=== PATIENT | female | born 1995 | race Caucasian/White ===

== ENCOUNTER → 2018-01-23 11:13 | Outpatient (REF) | payer MEDICAID, SELFPAY ==
[2018-01-23 15:11] LABS: Tricyclic Antidepressants Negative (Negative)
[2018-01-23 15:18] LABS: *AMPHETAMINES SCREEN URINE Negative (Negative); *BARBITURATES SCREEN URINE Negative (Negative); *BENZODIAZEPINES SCREEN URINE Negative (Negative); Cannabinoids THC Negative (Negative); Cocaine Screen,Urine Negative (Negative); METHADONE URINE SCREEN Negative (Negative); OPIATES URINE SCREEN Negative (Negative)
[2018-01-24 14:59] LABS: Chlamydia Result Negative; GC Result Negative; Specimen Description CERVIX
[2018-01-26 08:52] LABS: Buprenorphine Negative; Norbuprenorphine Negative
== END ==
LOC: LBN 11:13
PROVIDERS: Visit Provider Advanced Practice Midwife
DX: Z34.91 Encounter for supervision of normal pregnancy, unspecified, first trimester (principal); Z11.3 Encounter for screening for infections with a predominantly sexual mode of transmission
CPT/HCPCS: 80307; 87077; 87491; 87591; 87086; 87480; 87510; 87660

== ENCOUNTER → 2018-01-23 11:24 | Outpatient (CLI) | payer MEDICAID, SELFPAY ==
[2018-01-23 13:09] LABS: Abs Immature Grans 0.02 k/cumm (0.0-0.09); Absolute Basophil Count 0.01 k/cumm (0.0-0.2); Absolute Eosinophil Count 0.17 k/cumm (0.0-0.7); Absolute Lymphocyte Count 2.15 k/cumm (1.2-3.4); Absolute Monocyte Count 0.72 k/cumm (0.11-0.7); Absolute Neutrophil Count 7.27 k/cumm (1.2-6.7); Basophils % 0.1; Eosinophils % 1.6; HCT 36.4 % (36.0-46.0); HGB 12.3 g/dL (12.0-15.5); Immature Grans % 0.2; Lymphocytes % 20.8; Mean Corp. HGB Concentration 33.8 g/dL (32.0-36.0); Mean Corpuscular Hemoglobin 29.6 pg (27.0-33.0); Mean Corpuscular Volume 87.7 fL (80-95); Neutrophils % 70.3; Platelet Count 272 x1000/uL (130-400); RBC 4.15 m/cumm (4.00-5.20); White Blood Cell Count 10.34 k/cumm (4.4-10.8)
[2018-01-23 13:13] LABS: Glucose,1 Hr (Glucola) 136 mg/dL (80-140)
[2018-01-23 13:58] LABS: TSH (W/Ref FT4) 0.75 uIU/mL (0.358-3.74)
[2018-01-24 11:50] LABS: HIV-1/2 Ag & Ab Screen Negative (NEGAT)
[2018-01-24 12:59] LABS: Hepatitis C Ab w Rflx HCV PCR Negative (NEGAT)
[2018-01-24 13:02] LABS: Rubella IgG Ab (UVM) Positive; Syphilis Serology (RPR) Negative (Negative)
[2018-01-24 15:13] LABS: Hepatitis B Surface Ag Negative (NEGAT)
== END ==
PROVIDERS: Visit Provider Advanced Practice Midwife
DX: Z34.91 Encounter for supervision of normal pregnancy, unspecified, first trimester (principal); Z11.3 Encounter for screening for infections with a predominantly sexual mode of transmission
CPT/HCPCS: 36415; 80055; 80307; 82950; 86850; 86900; 86901; 87077; 87491; 87591; 84443; 87086; 87480; 87510; 87660

== ENCOUNTER → 2018-01-26 08:25 | Outpatient (CLI) | payer MEDICAID, SELFPAY ==
[2018-01-26 10:51] LABS: Glucose 1 Hour 121 mg/dL
[2018-01-26 13:00] LABS: Glucose 3 Hour 82 mg/dL
== END ==
PROVIDERS: Visit Provider Advanced Practice Midwife
DX: R73.02 Impaired glucose tolerance (oral) (principal)
CPT/HCPCS: 36410; 82951

== ENCOUNTER → 2018-02-06 17:36 | Outpatient (REF) | payer MEDICAID, SELFPAY ==
[2018-02-06 18:57] LABS: Bilirubin Negative (Negative); Blood Negative (Negative); Clarity Clear; Glucose Negative (Negative); Ketones Trace mg/dL (Negative); Leukocyte Esterase Negative (Negative); Nitrite Negative (Negative); Urobilinogen 0.2 EU/dL (Up TO 0.2); pH 6.5 (5-8)
== END ==
LOC: LBN 17:36
PROVIDERS: Visit Provider Midwife
DX: R30.9 Painful micturition, unspecified (principal)
CPT/HCPCS: 81003

== ENCOUNTER 2018-02-27 12:47 | Observation (INO) | payer MEDICAID, SELFPAY ==
[2018-02-27] MEDS: Lactated Ringers 1,000 ML 150 ML IV (14:04)
[2018-02-27 14:08] LABS: Chloride 104 mmol/L (98-107); Potassium 3.7 mmol/L (3.5-5.1); Sodium 137 mmol/L (136-145)
[2018-02-27] MEDS: Metoclopramide 10 MG/2 ML VIAL IVP (14:32)
[2018-02-27] MEDS: Ondansetron 4 MG/2 ML VIAL IVP (15:07)
== END 2018-02-27 17:40 | disposition home or self-care (01) ==
PROVIDERS: Admitting Provider Advanced Practice Midwife; Visit Provider Advanced Practice Midwife
DX: O21.8 Other vomiting complicating pregnancy (principal); Z3A.17 17 weeks gestation of pregnancy
CPT/HCPCS: 36415; 80051; G0378; J2405; J2765

== ENCOUNTER 2018-03-05 00:22 | Outpatient (CLI) | payer MEDICAID, SELFPAY ==
--- NOTE | 2018-03-05 09:52 | DI.US_ITS ---
Many abnormalities cannot be diagnosed. A normal exam does not exclude a congenital anomaly. Radiology No. LMP: Exam Date: 03/05/18 [facility] wks days on EDC ([facility]) 08/02/18 Confirmed: HISTORY: SUPERVISION OF NORMAL , Z34.90, SURVEY ---- PREDICTED GESTATIONAL AGE NUMBER 18.4 weeks with a range of 17.4 week to 19.4 weeks. 1 Determined by__X_1STUS___LMP___HISTORY Info. pertaining to fetus # PLACENTA PRESENTATION Grade 0-1 Cephalic__X_ Anterior__X_Posterior___ Breech____ Right Left Transverse(head right___ Fundal___Low-lying___Previa___ Transverse(head left___ Varying BIOMETRY AMNIOTIC FLUID BPD: 42 mm 18.6 weeks Normal HC: 157 mm 18.4 weeks AC: 29 mm 18.6 weeks FL: 132 mm 18.5 weeks AMNIOTIC FLUID INDEX >26 WK CRL: mm weeks Cisterna Magna: 2.2 mm CI: 86 RUQ: LUQ Cerebellum: 1.9 cm EFW: 255 grams 56TH Percentile RLQ: LLQ Total: cms Composite AGE= 18.5 wks EDC by US 08/01/18____ BIOPHYSICAL PROFILE ANATOMY IDENTIFIED SCORE 0/2 Heart: 4-Chamber_X__Rate:BPM__155___ LVOT: X__ RVOT:___X Amniotic Fluid(>2cms)____ Stomach:__X Kidneys:___X____ Respirations (>30 secs) Bladder:____X____ Post. Fossa: X Body Flex/Extension 3 vessel cord:___X____Ventricles: X cord insertion:__X___ Lips:__X__ Extremity Flex/Extension spinal morphology:___X Nose:X Total Score= Palate:___X____ NS=not seen Routine examination. There is a single intrauterine gestation. Estimated sonographic age is 18 weeks 5 days. No or placental abnormalities are identified. The fetus is in the cephalic presentation. Estimated weight is 255 grams. Amniotic fluid is within normal limits visually. The placenta is anterior without evidence of previa. IMPRESSION: Single living intrauterine gestation. Estimated sonographic age is 18 weeks 5 days.
== END 2018-03-05 00:42 ==
PROVIDERS: Visit Provider Advanced Practice Midwife
DX: Z34.82 Encounter for supervision of other normal pregnancy, second trimester (principal)
CPT/HCPCS: 76805

== ENCOUNTER 2018-03-05 12:16 | Outpatient (REF) | payer MEDICAID, SELFPAY ==
[2018-03-05 12:36] LABS: Bilirubin Negative (Negative); Blood Negative (Negative); Clarity Clear; Glucose Negative (Negative); Ketones Negative (Negative); Leukocyte Esterase Trace (Negative); Nitrite Negative (Negative); Urobilinogen 0.2 EU/dL (Up TO 0.2)
[2018-03-05 12:45] LABS: Bacteria Moderate HPF (Negative); C & S Indicated? No/Sq. Contamination; Casts Negative LPF (Negative); Crystals Negative HPF (Negative); Epithelial Cells Many HPF (Negative); Mucus Negative (Negative); RBC 0-2 (0-2)
== END 2018-03-05 12:36 ==
LOC: LBN 12:16
PROVIDERS: Visit Provider Advanced Practice Midwife
DX: Z34.91 Encounter for supervision of normal pregnancy, unspecified, first trimester (principal)
CPT/HCPCS: 81003; 81015

== ENCOUNTER 2018-03-21 17:41 | Outpatient (REF) | payer MEDICAID, SELFPAY | END 2018-03-21 18:01 | LOC: LBN 17:41 | PROVIDERS: Visit Provider Advanced Practice Midwife | DX: Z34.92 Encounter for supervision of normal pregnancy, unspecified, second trimester (principal) | CPT/HCPCS: 87086 ==

== ENCOUNTER 2018-04-10 17:40 | Outpatient (REF) | payer MEDICAID, SELFPAY | END 2018-04-23 14:10 | disposition home or self-care (01) | LOC: LBN 17:40 | PROVIDERS: Visit Provider Advanced Practice Midwife | DX: O23.40 Unspecified infection of urinary tract in pregnancy, unspecified trimester (principal) | CPT/HCPCS: 87086 ==

== ENCOUNTER 2018-04-23 12:52 | Observation (INO) | payer MEDICAID, SELFPAY | END 2018-04-23 14:10 | disposition home or self-care (01) | LOC: OBS 13:16 | PROVIDERS: Admitting Provider Advanced Practice Midwife; Visit Provider Advanced Practice Midwife | DX: O60.02 Preterm labor without delivery, second trimester (principal); Z3A.25 25 weeks gestation of pregnancy | CPT/HCPCS: G0378 ==

== ENCOUNTER 2018-04-24 19:52 | Outpatient (CLI) | payer MEDICAID, SELFPAY ==
[2018-04-24] MEDS: hydrOXYzine PAMOATE 25 MG CAP 100 MG PO (21:05)
== END 2018-04-24 20:12 ==
PROVIDERS: Visit Provider Advanced Practice Midwife
DX: O26.892 Other specified pregnancy related conditions, second trimester (principal); Z3A.25 25 weeks gestation of pregnancy; R10.84 Generalized abdominal pain
CPT/HCPCS: 59025

== ENCOUNTER 2018-05-20 16:15 | Outpatient (CLI) | payer MEDICAID, SELFPAY | END 2018-05-20 16:35 | PROVIDERS: Visit Provider Advanced Practice Midwife | DX: O36.8130 Decreased fetal movements, third trimester, not applicable or unspecified (principal); Z3A.30 30 weeks gestation of pregnancy | CPT/HCPCS: 59025 ==

== ENCOUNTER 2018-05-28 16:15 | Observation (INO) | payer MEDICAID, SELFPAY ==
[2018-05-28 16:56] LABS: Bilirubin Negative (Negative); Blood Negative (Negative); Clarity Clear; Glucose Negative (Negative); Ketones Negative (Negative); Leukocyte Esterase Small (Negative); Nitrite Negative (Negative); Urobilinogen 0.2 EU/dL (Up TO 0.2); pH 7.5 (5-8)
[2018-05-28 17:07] LABS: Bacteria Few HPF (Negative); C & S Indicated? No/Sq. Contamination; Casts Negative LPF (Negative); Crystals Negative HPF (Negative); Epithelial Cells Many HPF (Negative); Mucus Negative (Negative); RBC Negative (0-2)
[2018-05-28 17:08] LABS: *AMPHETAMINES SCREEN URINE Negative (Negative); *BARBITURATES SCREEN URINE Negative (Negative); *BENZODIAZEPINES SCREEN URINE Negative (Negative); Cannabinoids THC Negative (Negative); Cocaine Screen,Urine Negative (Negative); METHADONE URINE SCREEN Negative (Negative); OPIATES URINE SCREEN Negative (Negative)
[2018-05-28 17:17] LABS: Tricyclic Antidepressants Negative (Negative)
== END 2018-05-28 17:40 | disposition home or self-care (01) ==
LOC: OBS 05-29 09:59
PROVIDERS: Admitting Provider Advanced Practice Midwife; Visit Provider Advanced Practice Midwife
DX: O60.03 Preterm labor without delivery, third trimester (principal); Z3A.30 30 weeks gestation of pregnancy
CPT/HCPCS: 80307; 81003; 81015; G0378

== ENCOUNTER 2018-05-31 07:02 | Outpatient (CLI) | payer MEDICAID, SELFPAY ==
[2018-05-31 07:29] LABS: Glucose,1 Hr (Glucola) 185 mg/dL (80-140)
[2018-05-31 07:32] LABS: HCT 33.5 % (36.0-46.0); Mean Corp. HGB Concentration 32.8 g/dL (32.0-36.0); Mean Corpuscular Hemoglobin 29.3 pg (27.0-33.0); Mean Corpuscular Volume 89.3 fL (80-95); Mean Platelet Volume 10.8 fL (8.0-11.0); Platelet Count 347 x1000/uL (130-400); RBC 3.75 m/cumm (4.00-5.20); RBC Distribution Width 12.9 % (11.7-14.6); White Blood Cell Count 13.84 k/cumm (4.4-10.8)
== END 2018-05-31 07:22 ==
PROVIDERS: Visit Provider Nurse Practitioner
DX: Z34.93 Encounter for supervision of normal pregnancy, unspecified, third trimester (principal); Z01.84 Encounter for antibody response examination
CPT/HCPCS: 36415; 82950; 85027; 86850

== ENCOUNTER 2018-06-07 01:58 | Outpatient (CLI) | payer MEDICAID, SELFPAY ==
--- NOTE | 2018-06-07 15:30 | DIABASSESS_ITS ---
Gestational Diabetes Blood Sugar Log for Bird Wagner Date fasting 1hr B 1 hr L 1 hr S 06/09 72 113 103 102 06/10 80 117 137* Didn?t eat *pizza, buffalo wings, lemonad 06/11 80 118 107 164/154 *prime rib, potato,cran sauce, roll 06/12 100 95 109 143* *?, cran sauce, ham, pink suff 06/13 89 119 101 90 06/14 N/A 120 93 120 06/15 80 135 111 Didn?t eat 06/16 88 101 117 Didn?t eat 06/17 75 114 117 103 06/18 86 128 06/19 81 114 102 91 ? 87 145* 125 102 *bagel sandwich; 06/21 85 In hospital No food 87 ? 94 155*/126@2hr 135(late) 112 *BLT, potato salad, carrie shake 06/24 67 [place] too sick To eat 06/25 92 123 142* 109 Chop suey, sabrina 06/26 90 126 106 Didn?t eat 06/27 n/a 134 131 95 06/28 84 142* 145 Didn?t eat Hot pocket chicken mariana, grapes 06/29 79 127 06/30 131 07/01 88 128 Email correspondence. Read chronologically bottom to top: Good morning, I didn?t snack before bed but I haven?t been lately. Blood sugar was 126 after breakfast. From: Yumiko Ivory [email or web address]>Sent: Tuesday, July 03, 2018 9:54 AM To: Bird Wagner Oh boy!? Interesting.? We are always looking for patterns.? Did you snack the night before?? Sometimes that helps to prevent high blood sugars in the morning. Your body may have thought it was going low and kicked in some internal sugar.? Can you let me know about tomorrow?s blood sugar in the morning?? Was the blood sugar at goal after breakfast? ? Thanks for letting me know. ? From: Bird Wagner <[email or web address]> Sent: Tuesday, July 03, 2018 6:08 AM To: Yumiko Ivory <[email or web address]> Good morning. My fasting number this morning was 130. Not sure why because after dinner last night it was 84.... From: Yumiko Ivory <[email or web address]>Sent: Monday, July 02, 2018 11:13 AM To: Bird Wagner You are right!? I am not sure if you are able to keep something from your meal to eat as a between meal snack?? For your example either the yogurt or the fruit might be held an hour or two to ?spread out? the carbs.? That seems to be true also when you eat grapes.? Saving some for mid-afternoon might help if that works in your schedule.? Nice work! Hang in there!! Yumiko From: Bird Wagner <[email or web address]> Sent: Monday, July 02, 2018 10:47 AM To: Yumiko Ivory <[email or web address]> Subject: Re: 06-19-18/ today sugar levels I don?t know. It?s hard. I?ve been trying to keep dairy in my diet, and I chose a yogurt with a low carb and sugar amount but it still brings my numbers border line with fruit. I mean there are things I know I shouldn?t eat like I shouldn?t have had the hot pockets but honestly it was a last resort thing. Followed by yogurt and fruit at lunch... I know I should be cutting down on the pasta and potatoes but is cheap and east....? ? Thank you, ? From: Yumiko Ivory <[email or web address]> Sent: Monday, July 02, 2018 10:24 AM To: Bird Wagner ? Thanks so much for sending in your numbers.? Just a couple of blips.? Sometimes the more procedded a food, the greater the impact on the blood sugar, but that does not always seem true.? You are good about switching up the meal after you get a high reading.? Do you feel confident figuring out how much carbohydrate you have in what you are eating?
--- NOTE | 2018-06-14 13:14 | DIABASSESS_ITS ---
DESCRIPTION/ASSESSMENT: Bird Wagner presents for consult for gestational diabetes with a 1 hour glucola test at 184. She had normal weight baby; no family history of diabetes. She is referred for self management without doing the 3 hour glucola test as she did that early in her . Bird states she was overweight at time of and has limited weight gain to 19 pounds this . States she has no much of an appetite. She takes ranitidine for heartburn. She eats 3 meals a day with fruit between meals. Bagel, egg, sausage sandwich for breakfast or oatmeal or lady donuts muffin. She also has sweetened [place] vanilla coffee. She has leftovers for lunch, and meat, potato or rice and vegetables for supper. She does not usually snack in the evening. She has sips of pepsi in a day, and apple juice 1-2 times a week. Bird states she does no regular physical activity. INTERVENTION: Reviewed risks of uncontrolled gestational diabetes based on physiology. Reviewed gestational Diabetes Guide focused on carbohydrate sources, portions, distribution, physical activity to control blood sugars. Reviewed glucometer use, monitoring schedule, glucose parameters. 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 Bird is engaged in the conversation and believes she can manage her diabetes. ACTION PLAN: Bird will: follow protocol for monitoring blood sugars and send them in every Monday. She knows to call with questions or concerns. Individual DSME/T __1__ units billed TIME IN: 1530 OUT: 1610 No DM group education series being offered at this time.
--- NOTE | 2018-06-18 14:26 | DIABASSESS_ITS ---
Gestational Diabetes Blood Sugar Log for Bird Wagner Date fasting 1hr B 1 hr L 1 hr S 06/09 72 113 103 102 06/10 80 117 137* Didn?t eat *pizza, buffalo wings, lemonad 06/11 80 118 107 164/154 *prime rib, potato,cran sauce, roll 06/12 100 95 109 143* *?, cran sauce, ham, pink suff 06/13 89 119 101 90 06/14 N/A 120 93 120 06/15 80 135 111 Didn?t eat 06/16 88 101 117 Didn?t eat 06/17 75 114 117 103 06/18 86 128
--- NOTE | 2018-06-25 11:34 | DIABASSESS_ITS ---
Gestational Diabetes Blood Sugar Log for Bird Wagner Date fasting 1hr B 1 hr L 1 hr S 06/09 72 113 103 102 06/10 80 117 137* Didn?t eat *pizza, buffalo wings, lemonad 06/11 80 118 107 164/154 *prime rib, potato,cran sauce, roll 06/12 100 95 109 143* *?, cran sauce, ham, pink suff 06/13 89 119 101 90 06/14 N/A 120 93 120 06/15 80 135 111 Didn?t eat 06/16 88 101 117 Didn?t eat 06/17 75 114 117 103 06/18 86 128 06/19 81 114 102 91 ? 87 145* 125 102 *bagel sandwich; 06/21 85 In hospital No food 87 ? 94 155*/126@2hr 135(late) 112 *BLT, potato salad, carrie shake 06/24 67 [place] too sick To eat
== END 2018-06-07 02:18 ==
PROVIDERS: Visit Provider Dietitian, Registered
DX: O24.419 Gestational diabetes mellitus in pregnancy, unspecified control (principal); Z71.3 Dietary counseling and surveillance
CPT/HCPCS: G0108

== ENCOUNTER 2018-06-21 07:57 | Observation (INO) | payer MEDICAID, SELFPAY ==
[2018-06-21] MEDS: Acetaminophen 500 MG TAB 1000 MG PO (10:02)
== END 2018-06-21 11:45 | disposition home or self-care (01) ==
PROVIDERS: Admitting Provider Advanced Practice Midwife; Visit Provider Advanced Practice Midwife
DX: O9A.213 Injury, poisoning and certain other consequences of external causes complicating pregnancy, third trimester (principal); S79.912A Unspecified injury of left hip, initial encounter; S79.922A Unspecified injury of left thigh, initial encounter; O99.333 Smoking (tobacco) complicating pregnancy, third trimester; F17.210 Nicotine dependence, cigarettes, uncomplicated; Z3A.34 34 weeks gestation of pregnancy; W00.1XXA Fall from stairs and steps due to ice and snow, initial encounter
CPT/HCPCS: G0378

== ENCOUNTER 2018-06-22 15:24 | Outpatient (CLI) | payer MEDICAID, SELFPAY ==
[2018-06-22 16:36] LABS: Fetal Fibronectin Negative (Negative)
== END 2018-06-22 17:00 | disposition home or self-care (01) ==
LOC: BCD 15:31 → OBS 16:18
PROVIDERS: Visit Provider Advanced Practice Midwife
DX: O36.8130 Decreased fetal movements, third trimester, not applicable or unspecified (principal); O47.03 False labor before 37 completed weeks of gestation, third trimester; Z3A.34 34 weeks gestation of pregnancy
CPT/HCPCS: 59025; 82731; G0378

== ENCOUNTER 2018-06-28 15:11 | Observation (INO) | payer MEDICAID, SELFPAY ==
[2018-06-28 19:48] LABS: ROM Plus Negative
== END 2018-06-28 22:24 | disposition home or self-care (01) ==
LOC: OBS 06-29 13:16
PROVIDERS: Admitting Provider Advanced Practice Midwife; Visit Provider Advanced Practice Midwife
DX: O47.03 False labor before 37 completed weeks of gestation, third trimester (principal); Z3A.35 35 weeks gestation of pregnancy
CPT/HCPCS: 84112; G0378

== ENCOUNTER 2018-07-03 02:01 | Outpatient (CLI) | payer MEDICAID, SELFPAY ==
[2018-07-03 08:34] LABS: ALT 12 U/L (12-78); AST 11 U/L (15-37); Albumin 2.8 g/dL (3.4-5.0); Alkaline Phosphatase 112 U/L (46-116); Bilirubin, Direct 0.05 mg/dL (0.00-0.20); Bilirubin, Total 0.2 mg/dL (0.2-1.0); Total Protein 6.1 g/dL (6.4-8.2)
[2018-07-04 16:36] LABS: Bile Acids, Total <1 mcmol/L (<=10)
== END 2018-07-03 02:21 ==
PROVIDERS: Visit Provider Advanced Practice Midwife
DX: Z34.93 Encounter for supervision of normal pregnancy, unspecified, third trimester (principal); L29.9 Pruritus, unspecified
CPT/HCPCS: 36415; 80076; 82239

== ENCOUNTER 2018-07-05 00:43 | Outpatient (CLI) | payer MEDICAID, SELFPAY ==
--- NOTE | 2018-07-05 13:08 | DI.US_ITS ---
SYMPTOMS/DIAGNOSIS: 36-WEEK SURVEILLANCE, GESTATIONAL DIABETES MELLITUS AFFECTING , O24.419 OBSTETRICAL ULTRASOUND: Many abnormalities cannot be diagnosed. A normal exam does not exclude a congenital anomaly. Radiology No. [id number] LMP: Exam Date: 07/05/18 [facility] wks days on EDC ([facility]) 08/02/18 Confirmed: HISTORY: PREDICTED GESTATIONAL AGE NUMBER 36 weeks with a range of 35 weeks to 37 weeks. 1 Determined by_X__1ST US___LMP___HISTORY PLACENTA PRESENTATION Grade II Cephalic_X__ Anterior_X__Posterior___ Breech____ Right Left Transverse(head right___ Fundal___Low-lying___Previa___ Transverse(head left___ Varying BIOMETRY AMNIOTIC FLUID BPD: 90 mm 36+2 weeks Normal HC: 323 mm 36+3 weeks AC: 313 mm 35+1 weeks FL: 68 mm 35+1 weeks AMNIOTIC FLUID INDEX >26 WK CRL: mm weeks Cisterna Magna: mm CI: 0.82 RUQ: 0.03 LUQ: 6.51 Cerebellum: cm EFW: 2673 grams Percentile: 35th RLQ: 2.23 LLQ: 4.07 Total: 12.8 cm Composite AGE= 35+5 wks EDC by US: 08/04/18 BIOPHYSICAL PROFILE ANATOMY IDENTIFIED SCORE 0/2 Heart: 4-Chamber___Rate:BPM 139 LVOT: RVOT: Amniotic Fluid(>2cms)____ Stomach:___X____ Kidneys: Respirations (>30 secs) Bladder:___X Post. Fossa: Body Flex/Extension 3 vessel cord: Ventricles: cord insertion: Lips:____ Extremity Flex/Extension spinal morphology: Nose: Total Score= Palate: NS=not seen COMMENTS: There is a single living intrauterine gestation. The fetus is in the cephalic presentation. heart rate is 139 beats per minute. A complete anatomic evaluation was not performed at this time. Estimated weight is 2673 g, which is the 35th percentile. The placenta is anterior without evidence of previa. The amniotic fluid index is 12.8 cm. Visually, the amniotic fluid appears within normal limits. IMPRESSION: Single living intrauterine gestation. Estimated sonographic age is 35 weeks 5 days.
== END 2018-07-05 01:03 ==
PROVIDERS: Visit Provider Advanced Practice Midwife
DX: O24.419 Gestational diabetes mellitus in pregnancy, unspecified control (principal); Z34.93 Encounter for supervision of normal pregnancy, unspecified, third trimester
CPT/HCPCS: 76816

== ENCOUNTER 2018-07-05 13:14 | Outpatient (CLI) | payer MEDICAID, SELFPAY | END 2018-07-05 13:34 | PROVIDERS: Visit Provider Advanced Practice Midwife | DX: O24.419 Gestational diabetes mellitus in pregnancy, unspecified control (principal); Z3A.36 36 weeks gestation of pregnancy; O9A.213 Injury, poisoning and certain other consequences of external causes complicating pregnancy, third trimester; W19.XXXA Unspecified fall, initial encounter | CPT/HCPCS: 59025 ==

== ENCOUNTER 2018-07-05 20:42 | Emergency (ER) | payer MEDICAID, SELFPAY ==
[2018-07-05 20:50] VITALS: BP 103/55; PULSE 87; RESP 20; TEMP 36.3; O2SAT 99
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
[2018-07-05] MEDS: Acetaminophen 325 MG TAB 650 MG PO (21:41)
== END 2018-07-05 21:54 | disposition short-term general hospital (02) ==
LOC: ER 21:09
PROVIDERS: Emergency Provider Physician Assistant
DX: O99.89 Other specified diseases and conditions complicating pregnancy, childbirth and the puerperium (principal); M54.5 Low back pain; R10.2 Pelvic and perineal pain; W01.0XXA Fall on same level from slipping, tripping and stumbling without subsequent striking against object, initial encounter; Z3A.39 39 weeks gestation of pregnancy
CPT/HCPCS: 99282

== ENCOUNTER 2018-07-05 21:50 | Outpatient (CLI) | payer MEDICAID, SELFPAY ==
[2018-07-05] MEDS: Ibuprofen 600 MG TAB PO (22:50)
== END 2018-07-05 22:10 ==
PROVIDERS: Visit Provider Advanced Practice Midwife
DX: O9A.213 Injury, poisoning and certain other consequences of external causes complicating pregnancy, third trimester (principal); W19.XXXA Unspecified fall, initial encounter; Z3A.36 36 weeks gestation of pregnancy
CPT/HCPCS: 59025

== ENCOUNTER 2018-07-06 14:36 | Outpatient (CLI) | payer MEDICAID, SELFPAY | END 2018-07-06 14:56 | PROVIDERS: Visit Provider Advanced Practice Midwife | DX: O36.8130 Decreased fetal movements, third trimester, not applicable or unspecified (principal); Z3A.36 36 weeks gestation of pregnancy | CPT/HCPCS: 59025 ==

== ENCOUNTER 2018-07-09 09:23 | Outpatient (CLI) | payer MEDICAID, SELFPAY | END 2018-07-09 09:43 | LOC: LBN 09:24 → BCD 09:25 | PROVIDERS: Visit Provider Advanced Practice Midwife | DX: O24.419 Gestational diabetes mellitus in pregnancy, unspecified control (principal); Z3A.36 36 weeks gestation of pregnancy | CPT/HCPCS: 59025 ==

== ENCOUNTER 2018-07-12 16:53 | Outpatient (CLI) | payer MEDICAID, SELFPAY | END 2018-07-12 17:13 | PROVIDERS: Visit Provider Advanced Practice Midwife | DX: O24.410 Gestational diabetes mellitus in pregnancy, diet controlled (principal); Z3A.37 37 weeks gestation of pregnancy | CPT/HCPCS: 59025 ==

== ENCOUNTER 2018-07-16 05:19 | Observation (INO) | payer MEDICAID, SELFPAY | END 2018-07-16 07:55 | disposition home or self-care (01) | PROVIDERS: Admitting Provider Advanced Practice Midwife; Visit Provider Advanced Practice Midwife | DX: O47.1 False labor at or after 37 completed weeks of gestation (principal); O24.410 Gestational diabetes mellitus in pregnancy, diet controlled; O99.820 Streptococcus B carrier state complicating pregnancy; Z3A.37 37 weeks gestation of pregnancy; O34.211 Maternal care for low transverse scar from previous cesarean delivery | CPT/HCPCS: 59025; G0378 ==

== ENCOUNTER 2018-07-18 16:55 | Outpatient (CLI) | payer MEDICAID, SELFPAY | END 2018-07-18 17:15 | PROVIDERS: Visit Provider Advanced Practice Midwife | DX: R69 Illness, unspecified (principal) | CPT/HCPCS: 59025 ==

== ENCOUNTER 2018-07-23 17:10 | Outpatient (CLI) | payer MEDICAID, SELFPAY | END 2018-07-23 17:30 | PROVIDERS: Visit Provider Advanced Practice Midwife | DX: O24.419 Gestational diabetes mellitus in pregnancy, unspecified control (principal); Z3A.38 38 weeks gestation of pregnancy | CPT/HCPCS: 59025 ==

== ENCOUNTER 2018-07-26 10:44 | Outpatient (CLI) | payer MEDICAID, SELFPAY | END 2018-07-26 11:04 | PROVIDERS: Visit Provider Advanced Practice Midwife | DX: O24.419 Gestational diabetes mellitus in pregnancy, unspecified control (principal); Z3A.39 39 weeks gestation of pregnancy | CPT/HCPCS: 59025 ==

== ENCOUNTER 2018-07-26 22:06 | Inpatient (IN) | payer MEDICAID, SELFPAY ==
[2018-07-27 02:03] LABS: HCT 34.9 % (36.0-46.0); HGB 11.5 g/dL (12.0-15.5); Mean Corpuscular Volume 85.1 fL (80-95); Mean Platelet Volume 12.2 fL (8.0-11.0); Platelet Count 313 x1000/uL (130-400); White Blood Cell Count 18.99 k/cumm (4.4-10.8)
[2018-07-27 02:11] LABS: Glucose 91 mg/dL (70-100)
[2018-07-27] MEDS: Lactated Ringers 1,000 ML 125 ML IV ×2 (02:46→13:41)
[2018-07-27] MEDS: Nalbuphine 10 MG/ML AMP 5 MG IM ×2 (03:50→05:47)
[2018-07-27] MEDS: NALBUPHINE 5 MG in Normal Saline 50 ML 100 MG IVPB ×2 (03:50→05:48)
[2018-07-27 05:19] LABS: Hemoglobin A1C 5.7 % (4.5-6.2)
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
[2018-07-27] MEDS: AZITHROMYCIN 500 MG in Normal Saline 250 ML 250 MG IVPB (12:35)
[2018-07-27] MEDS: Sodium Citrate 30 ML CUP PO (12:35)
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
[2018-07-27] MEDS: Ketorolac 30 MG/ML VIAL IVP ×2 (16:37→22:05)
[2018-07-27] MEDS: Naloxone 0.4 MG/ML VIAL IVP (19:53)
[2018-07-28] MEDS: Lactated Ringers 1,000 ML 120 ML IV (00:20)
[2018-07-28] MEDS: Ketorolac 30 MG/ML VIAL IVP ×2 (04:08→10:09)
[2018-07-28 07:55] LABS: HGB 10.7 g/dL (12.0-15.5); Mean Corp. HGB Concentration 32.4 g/dL (32.0-36.0); Mean Corpuscular Hemoglobin 27.9 pg (27.0-33.0); Mean Corpuscular Volume 85.9 fL (80-95); Mean Platelet Volume 12.1 fL (8.0-11.0); Platelet Count 310 x1000/uL (130-400); RBC 3.84 m/cumm (4.00-5.20); White Blood Cell Count 15.22 k/cumm (4.4-10.8)
[2018-07-28] MEDS: Docusate Sodium 100 MG CAP PO ×2 (08:34→21:16)
[2018-07-28] MEDS: Normal Saline Flush 10 ML SYR IVP (10:10)
[2018-07-28] MEDS: Acetaminophen 325 MG TAB 650 MG PO ×2 (10:17→14:26)
--- NOTE | 2018-07-28 10:51 | ROE_ITS ---
Date of service: 07/28/18 Time of Service: 10:50 Operative Note DATE OF PROCEDURE: 07/27/18 PRE-OP DIAGNOSIS: IUP at 39 W1D EGA. Unsuccessful trial of labor POST-OP DIAGNOSIS: same PROCEDURE: Nonselective repeat low transverse delivery SURGEON: Kavita Daniels BUTCHER OR SMALLGOODS MAKER: Bony Ba BUTCHER OR SMALLGOODS MAKER: Mary Jo Aj ANESTHESIA: spinal (Nav Estrella SRNA Lori Dao BEREAVEMENT COORDINATOR) ESTIMATED BLOOD LOSS: 600 PATHOLOGY: none sent COMPLICATIONS: None Patient was transported to: floor Patient's condition: stable Implants: None Indications: 22-year-old female at 39-1/7 weeks estimated gestational age who desired a trial of labor. She presented with spontaneous rupture membranes at midnight on 07/27/2018. She had no cervical change despite spontaneous contractions over the course of 12 hours. The patient was 1 cm and remote from delivery and after discussion with the patient decision was made to not attempt a augmentation of labor but instead to proceed to a repeat delivery. Findings: Viable female vertex, CHRISTOPHER position clear amniotic fluid weight 7 pounds 3 ounces she will be called [facility]. Apgars 8 at 1 minute 9 at 5 minutes normal uterus, adnexa, and pelvis. Procedure Description: Patient was taken to the operating room where she placed in the sitting position where spinal anesthesia was admitted was administered without difficulty. She was then placed in the dorsal supine position with a leftward tilt prepped and draped in the usual sterile fashion. Of note a Betadine vaginal prep was performed in addition to azithromycin 500 mg IV and Ancef 2 g IV being administered prior to skin incision. SCDs were in place for the remainder of the case. A timeout was performed with no conflicts noted. After an adequate level of an anesthesia was obtained skin incision was made with a scalpel using the previous Pfannenstiel skin incision the underlying subcutaneous tissue was dissected using Bovie electrocautery to level the rectus fascia the rectus fascia was then nicked in the midline with a scalpel and the incision was extended laterally using Russell scissors. The rectus fascia was was dissected off of the underlying rectus muscles using blunt technique and Bovie e lectrocautery in both the caudal and cephalad portions of the fascial incision. The rectus muscles were in the midline and the peritoneum was entered and the peritoneal incision was extended using blunt technique. This allowed placement of the bladder blade into the abdominal incision to retract the bladder away from the operative field. The vesicouterine fold was tented up and incised with Metzenbaum scissors and the incision was extended transversely and the bladder flap created digitally. The bladder blade was then replaced to retract the bladder away from the operative field the lower uterine segment was then incised in transverse fashion with a scalpel upon entry into the uterine cavity the uterine incision was extended laterally using blunt technique bag of amniotic fluid was ruptured single gloved hand was placed into the abdominal cavity and the head delivered atraumatically with the assistance of fundal pressure the shoulders trunk and extremities were also delivered. The infant's umbilical cord was doubly clamped and cut and the was handed off to waiting pediatric team. The placenta was then extracted using a combination of fundal massage and cord traction. Uterus was then exteriorized cleared of all clots and debris's and the uterine incision was reapproximated with what with a running lock suture of 0 Vicryl followed by a second imbricating suture of 0 Vicryl in a running fashion. Uterine incision was inspected and noted be hemostatic and the uterus was returned to the abdomen. The paracolic gutters cleared of all clots and debr is's and the abdominal wall and bladder flap inspected and noted be hemostatic. The rectus fascia was reapproximated with a running suture of 0 Vicryl extending from the lateral margins and overlapping in the midline subcutaneous tissue was reapproximated with a running suture of 2-0 Vicryl and the skin closed with a subcuticular suture of 4-0 Vicryl. The skin was sealed with skin glue uterus wa s then massaged for any remaining clots and debris's patient was transferred to [facility] and transported to recovery area in stable condition all sponge lap needle counts are correct x2
[2018-07-28] MEDS: Ibuprofen 600 MG TAB PO ×2 (16:09→23:20)
[2018-07-28] MEDS: oxyCODONE 5 mg/Acetaminophen 325 mg TAB PO ×2 (18:27→21:15)
[2018-07-29] MEDS: oxyCODONE 5 mg/Acetaminophen 325 mg TAB PO ×4 (01:25→11:52)
[2018-07-29] MEDS: Docusate Sodium 100 MG CAP PO (09:51)
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
[2018-07-29] MEDS: Ibuprofen 600 MG TAB PO (11:52)
== END 2018-07-29 12:10 | disposition home or self-care (01) | DRG 788 ==
PROVIDERS: Admitting Provider Advanced Practice Midwife; Visit Provider Obstetrics & Gynecology Gynecology
PROC: 10D00Z1 Extraction of Products of Conception, Low, Open Approach (ICD-10-PCS; CPT 59514; principal; 2018-07-27 13:00)
DX: O66.41 Failed attempted vaginal birth after previous cesarean delivery (principal); Z37.0 Single live birth; O34.211 Maternal care for low transverse scar from previous cesarean delivery; O99.824 Streptococcus B carrier state complicating childbirth; O99.334 Smoking (tobacco) complicating childbirth; F17.210 Nicotine dependence, cigarettes, uncomplicated; Z3A.39 39 weeks gestation of pregnancy; O42.92 Full-term premature rupture of membranes, unspecified as to length of time between rupture and onset of labor; O24.420 Gestational diabetes mellitus in childbirth, diet controlled
CPT/HCPCS: 59620; 36415; 82947; 85027; 86850; 86900; 86901; 99221; 83036; G0378; J0456; J0690; J1885; J2310; J2405; J2540; J3010; J3490

== ENCOUNTER 2018-09-10 15:14 | Outpatient (REF) | payer MEDICAID, SELFPAY ==
--- NOTE | 2018-09-10 13:20 | PAPFT_PTH ---
PATIENT: Bird [address] LOC: [facility] U#:[id number] AGE/SX: 23/F ROOM: RE09/10/[address]: Natalia Nelson : 1995 BED: DIS: 09/10/2018 SPEC #: [id number] RECD: 09/10/18 17:54 STATUS: JOSE MARIA REQ #: [id number] MARY BETH: 09/10/18 13:[address]: Natalia Nelson DEPT: [facility] Cytology RECD BY: Corrine King ENTERED: 09/10/18 17:55 SP TYPE: PAPFT OTHR DR: Buffy Garcia APRN Tissues: 1 - CX/ENDOCX FOR PAP SMEARS Procedures: PAP THIN PREP/UVM Screening Comments: [id number]
== END 2018-09-10 15:34 ==
LOC: LBN 15:14
PROVIDERS: Visit Provider Advanced Practice Midwife
DX: Z12.4 Encounter for screening for malignant neoplasm of cervix (principal)
CPT/HCPCS: 88142

== ENCOUNTER 2018-10-29 16:53 | Outpatient (REF) | payer MEDICAID, SELFPAY ==
[2018-10-31 14:19] LABS: Chlamydia Result Negative; GC Result Negative; Specimen Description URINE
== END 2018-10-29 17:13 ==
LOC: LBN 16:53
PROVIDERS: Visit Provider Nurse Practitioner Family
DX: Z11.3 Encounter for screening for infections with a predominantly sexual mode of transmission (principal)
CPT/HCPCS: 87491; 87591

== ENCOUNTER 2018-11-05 09:00 | Emergency (ER) | payer MEDICAID, SELFPAY ==
[2018-11-05 09:03] VITALS: BP 119/75; PULSE 83; RESP 18; TEMP 36.7; O2SAT 98
--- NOTE | 2018-11-05 09:38 | DI.CT_ITS ---
SYMPTOMS/DIAGNOSIS: RLQ ABD PAIN CT OF THE ABDOMEN AND PELVIS: Images were performed from the lung bases through ischial tuberosities after IV and without oral contrast. The lung bases are clear. The heart size is normal. The liver, gallbladder, spleen, adrenals, pancreas and kidneys appear normal. The appendix appears normal. There is no bowel dilatation or wall thickening. There is increased stool seen throughout the colon. The uterus, ovaries and bladder are unremarkable. There is a small amount of fluid in the cul-de-sac, likely within normal physiologic limits. IMPRESSION: Increased quantity of fecal material. Small amount of fluid in the low pelvis.
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
[2018-11-05 09:44] LABS: Bilirubin Negative (Negative); Blood Negative (Negative); Clarity Clear; Glucose Negative (Negative); Ketones Negative (Negative); Leukocyte Esterase Trace (Negative); Nitrite Negative (Negative); Specific Gravity 1.015 (1.005-1.025); Urobilinogen 0.2 EU/dL (Up TO 0.2)
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
[2018-11-05 09:48] LABS: Abs Immature Grans 0.02 k/cumm (0.0-0.09); Absolute Basophil Count 0.03 k/cumm (0.0-0.2); Absolute Eosinophil Count 0.28 k/cumm (0.0-0.7); Absolute Lymphocyte Count 1.88 k/cumm (1.2-3.4); Absolute Monocyte Count 0.61 k/cumm (0.11-0.7); Absolute Neutrophil Count 4.27 k/cumm (1.2-6.7); Basophils % 0.4; Eosinophils % 3.9; HCT 39.6 % (36.0-46.0); HGB 13.2 g/dL (12.0-15.5); Immature Grans % 0.3; Lymphocytes % 26.5; Mean Corp. HGB Concentration 33.3 g/dL (32.0-36.0); Mean Corpuscular Hemoglobin 28.1 pg (27.0-33.0); Mean Corpuscular Volume 84.3 fL (80-95); Mean Platelet Volume 11.4 fL (8.0-11.0); Monocytes % 8.6; Neutrophils % 60.3; Platelet Count 399 x1000/uL (130-400); RBC Distribution Width 15.3 % (11.7-14.6); White Blood Cell Count 7.09 k/cumm (4.4-10.8)
[2018-11-05 09:54] LABS: Bacteria Negative HPF (Negative); C & S Indicated? No; Casts Negative LPF (Negative); Crystals Negative HPF (Negative); Epithelial Cells Negative HPF (Negative); Mucus Negative (Negative); Other Cells Negative (Negative); RBC Negative (0-2); WBC 0-2 HPF (0-5)
[2018-11-05 09:59] LABS: ALT 20 U/L (12-78); AST 14 U/L (15-37); Alkaline Phosphatase 83 U/L (46-116); BUN 13 mg/dL (7-18); Chloride 105 mmol/L (98-107); Glucose 84 mg/dL (70-100); Lipase 161 U/L (73-393); Potassium 4.1 mmol/L (3.5-5.1); Sodium 140 mmol/L (136-145)
[2018-11-05 10:12] LABS: Anion Gap 13.2 mmol/L (3-11); Bilirubin, Total 0.2 mg/dL (0.2-1.0); CO2 21.8 mmol/L (21.0-32.0); CREATININE 0.86 mg/dL (0.55-1.02); Total Protein 7.8 g/dL (6.4-8.2)
[2018-11-05 10:22] LABS: Calcium 8.8 mg/dL (8.5-10.1)
[2018-11-05 10:49] VITALS: BP 106/59; PULSE 70; RESP 16; TEMP 36.4; O2SAT 99
[2018-11-05] MEDS: Lactated Ringers 1,000 ML 125 ML IV (10:49)
[2018-11-05] MEDS: Omnipaque 350 MG/ML 100 ML BTL IV (11:07)
--- NOTE | 2018-11-05 11:59 | DI.US_ITS ---
SYMPTOMS/DIAGNOSIS: FREE FLUID IN PELVIS, RIGHT LOWER ABDOMINAL PAIN, 3 MOS PELVIC ULTRASOUND: Transabdominal and transvaginal exams were performed. The bladder is unremarkable. There is a minimal amount of free fluid in the cul-de-sac. The uterus measures 7.3 x 3.5 x 5.1 cm. The endometrial stripe measures 4 mm in thickness. The ovaries are normal in size and appearance, without evidence of cyst or mass. There is no evidence of ovarian torsion. IMPRESSION: Pelvic ultrasound is within normal limits. A trace amount of fluid is seen in the cul-de-sac.
[2018-11-05 13:36] VITALS: BP 110/70; PULSE 76; RESP 16; TEMP 36.6; O2SAT 98
== END 2018-11-05 13:44 | disposition home or self-care (01) ==
PROVIDERS: Emergency Provider Student in an Organized Health Care Education/Training Program
DX: R10.31 Right lower quadrant pain (principal); R50.9 Fever, unspecified; R63.0 Anorexia
CPT/HCPCS: 36415; 80053; 81025; 83690; 96360; 99285; 74177; 76830; 76856; 81003; 81015; 85025; 99284; J3490

== ENCOUNTER 2019-03-19 09:13 | Outpatient (CLI) | payer MEDICAID, SELFPAY ==
[2019-03-19 09:38] LABS: Abs Immature Grans 0.01 k/cumm (0.0-0.09); Absolute Basophil Count 0.03 k/cumm (0.0-0.2); Absolute Eosinophil Count 0.23 k/cumm (0.0-0.7); Absolute Lymphocyte Count 2.24 k/cumm (1.2-3.4); Absolute Monocyte Count 0.75 k/cumm (0.11-0.7); Absolute Neutrophil Count 4.04 k/cumm (1.2-6.7); Basophils % 0.4; Eosinophils % 3.2; HCT 42.4 % (36.0-46.0); Immature Grans % 0.1; Lymphocytes % 30.7; Mean Corpuscular Hemoglobin 28.4 pg (27.0-33.0); Mean Platelet Volume 10.9 fL (8.0-11.0); Monocytes % 10.3; Neutrophils % 55.3; Platelet Count 363 x1000/uL (130-400); RBC 4.93 m/cumm (4.00-5.20); RBC Distribution Width 13.6 % (11.7-14.6)
[2019-03-19 10:12] LABS: Hemoglobin A1C 5.6 % (4.5-6.2)
[2019-03-19 10:43] LABS: ALT 15 U/L (14-59); AST 14 U/L (15-37); Albumin 4.2 g/dL (3.4-5.0); Alkaline Phosphatase 104 U/L (46-116); Anion Gap 8.9 mmol/L (3-11); BUN 14 mg/dL (7-18); Bilirubin, Total 0.3 mg/dL (0.2-1.0); CO2 26.1 mmol/L (21.0-32.0); CREATININE 0.85 mg/dL (0.55-1.02); Calcium 9.3 mg/dL (8.5-10.1); Chloride 107 mmol/L (98-107); Glucose 86 mg/dL (70-100); Potassium 4.7 mmol/L (3.5-5.1); Sodium 142 mmol/L (136-145); TSH (W/Ref FT4) 1.39 uIU/mL (0.36-3.74); Total Protein 7.4 g/dL (6.4-8.2)
== END 2019-03-19 09:33 ==
DX: G89.29 Other chronic pain (principal); R10.11 Right upper quadrant pain; G47.00 Insomnia, unspecified; E03.9 Hypothyroidism, unspecified
CPT/HCPCS: 36415; 80053; 83036; 84443; 85025

== ENCOUNTER 2019-06-05 16:14 | Emergency (ER) | payer MEDICAID, SELFPAY ==
[2019-06-05 16:21] VITALS: BP 124/81; PULSE 95; RESP 16; TEMP 36.7; O2SAT 98
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
[2019-06-05] MEDS: Normal Saline 1,000 ML 1000 ML IV (16:40)
[2019-06-05 16:55] LABS: Abs Immature Grans 0.02 k/cumm (0.0-0.09); Absolute Basophil Count 0.03 k/cumm (0.0-0.2); Absolute Eosinophil Count 0.31 k/cumm (0.0-0.7); Absolute Lymphocyte Count 2.42 k/cumm (1.2-3.4); Absolute Monocyte Count 0.92 k/cumm (0.11-0.7); Absolute Neutrophil Count 5.89 k/cumm (1.2-6.7); Basophils % 0.3; Eosinophils % 3.2; HCT 41.5 % (36.0-46.0); HGB 13.8 g/dL (12.0-15.5); Immature Grans % 0.2; Lymphocytes % 25.2; Mean Corp. HGB Concentration 33.3 g/dL (32.0-36.0); Mean Corpuscular Hemoglobin 28.6 pg (27.0-33.0); Mean Corpuscular Volume 86.1 fL (80-95); Mean Platelet Volume 10.9 fL (8.0-11.0); Monocytes % 9.6; Neutrophils % 61.5; Platelet Count 361 x1000/uL (130-400); RBC 4.82 m/cumm (4.00-5.20); RBC Distribution Width 13.6 % (11.7-14.6); White Blood Cell Count 9.59 k/cumm (4.4-10.8)
[2019-06-05 17:17] LABS: ALT 12 U/L (14-59); AST 13 U/L (15-37); Alkaline Phosphatase 95 U/L (46-116); Anion Gap 7.1 mmol/L (3-11); BUN 13 mg/dL (7-18); CO2 27.9 mmol/L (21.0-32.0); CREATININE 0.99 mg/dL (0.55-1.02); Calcium 9.1 mg/dL (8.5-10.1); Chloride 106 mmol/L (98-107); Glucose 96 mg/dL (74-106); Lipase 155 U/L (73-393); Potassium 3.9 mmol/L (3.5-5.1); Sodium 141 mmol/L (136-145); TSH (W/Ref FT4) 2.65 uIU/mL (0.36-3.74); Total Protein 7.7 g/dL (6.4-8.2)
[2019-06-05 17:18] LABS: Troponin I < 0.05 ng/Ml (<0.06)
[2019-06-05 17:19] LABS: Bilirubin, Total < 0.1 mg/dL (0.2-1.0)
[2019-06-05 17:35] LABS: D-Dimer 212 ng/mlFEU (<500)
[2019-06-05 18:12] VITALS: BP 121/58; PULSE 97; RESP 18; O2SAT 100
== END 2019-06-05 18:10 | disposition home or self-care (01) ==
PROVIDERS: Emergency Provider Emergency Medicine
DX: R00.2 Palpitations (principal); R42 Dizziness and giddiness; M54.6 Pain in thoracic spine
CPT/HCPCS: 36415; 80053; 81025; 83690; 93005; 96360; 99284; 84443; 84484; 85025; 85379; 93010

== ENCOUNTER 2019-11-14 01:51 | Outpatient (CLI) | payer MEDICAID, SELFPAY ==
--- NOTE | 2019-11-14 03:50 | DI.US_ITS ---
EXAM: US PELVIS TRANSVAGINAL CLINICAL HISTORY: R sided pelvic pain, IUD surveillence,R10.2,Z30.431. TECHNIQUE: Transabdominal and transvaginal pelvic ultrasound was performed using standard protocol. COMPARISON: CT CT ABDOMEN PELVIS W from 11/05/2018 FINDINGS: KIDNEYS: Kidneys are symmetric in size. No evidence of renal calculi. No evidence of hydronephrosis. No renal mass or cyst identified. UTERUS: Position: Anteverted. Size: 6.2 x 3.8 x 4.9 cm Endometrium: 3 millimeters. Is seen within the endometrial cavity, appropriately positioned. Myometrium: Lower uterine segment scar.. Cervix: Unremarkable. OVARIES: Right: cm Cyst or mass: None. Left: cm Cyst or mass: None. DOPPLER: Color: Symmetric and uniform flow to both ovaries. No hyperemia. Duplex: Normal ovarian arterial waveforms visualized. CUL-DE-SAC: Free fluid: None. Other: None. IMPRESSION: 1. Normal sonographic appearance of the kidneys. 2. IUD present within the endometrium. 3. Unremarkable bilateral ovaries. DATA REPOSITORY:
== END 2019-11-14 02:11 ==
PROVIDERS: Visit Provider Nurse Practitioner Women's Health
DX: R10.2 Pelvic and perineal pain (principal); Z30.431 Encounter for routine checking of intrauterine contraceptive device
CPT/HCPCS: 76830; 76856

== ENCOUNTER 2019-12-18 10:43 | Emergency (ER) | payer MEDICAID, SELFPAY ==
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
[2019-12-18 10:47] VITALS: BP 123/66; PULSE 95; RESP 18; TEMP 36.8; O2SAT 96
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
[2019-12-18 11:54] VITALS: RESP 1
[2019-12-18] MEDS: Albuterol/Ipratropium 3 ML UPD VIAL UPD (11:54)
[2019-12-18 12:22] VITALS: RESP 1
[2019-12-18 13:03] VITALS: BP 125/67; PULSE 80; RESP 16; TEMP 36.3; O2SAT 99
== END 2019-12-18 13:15 | disposition home or self-care (01) ==
PROVIDERS: Emergency Provider Registered Nurse Emergency
DX: J20.9 Acute bronchitis, unspecified (principal); R07.81 Pleurodynia; J02.9 Acute pharyngitis, unspecified; F17.210 Nicotine dependence, cigarettes, uncomplicated
CPT/HCPCS: 81025; 94640; 99283; 71046; J7620

== ENCOUNTER 2019-12-20 08:04 | Outpatient (CLI) | payer MEDICAID, SELFPAY ==
[2019-12-25 21:29] LABS: SARS-CoV-2 RNA Undetected (Undetected); SARS-CoV-2 Specimen Source Nasopharynx
== END 2019-12-20 08:24 ==
PROVIDERS: Visit Provider Registered Nurse Emergency
DX: Z11.59 Encounter for screening for other viral diseases (principal)
CPT/HCPCS: U0003

== ENCOUNTER 2020-01-03 07:51 | Outpatient (CLI) | payer MEDICAID, SELFPAY ==
[2020-01-05 17:44] LABS: COVID-19 RT-PCR Result NEGATIVE (Negative)
== END 2020-01-03 08:11 ==
PROVIDERS: Family Medicine; Visit Provider Urology
DX: R05 Cough (principal); J40 Bronchitis, not specified as acute or chronic
CPT/HCPCS: U0003

== ENCOUNTER 2020-01-06 02:53 | Outpatient (CLI) | payer MEDICAID, SELFPAY ==
[2020-01-06] MEDS: Albuterol HFA 18 GM 200 PUFF INH IH (10:52)
[2020-01-06] MEDS: Inhaler, Assist Device 1 EACH MC (10:53)
--- NOTE | 2020-01-08 12:47 | W.PFT ---
Date of service: 01/06/20 Time of Service: 10:05 Pulmonary Function Test Result Interpretation Spirometry: Shows no evidence of obstructive airways disease, no bronchodilator response Lung Volumes: Not done Diffusion Capacity: Not done Airway Pressure: Not done Impression Normal spirometry, no bronchodilator response Clinical Correlation therefore is recommended.
== END 2020-01-06 03:13 ==
DX: J40 Bronchitis, not specified as acute or chronic (principal)
CPT/HCPCS: 94060

== ENCOUNTER 2020-02-10 07:10 | Outpatient (CLI) | payer MEDICAID, SELFPAY ==
[2020-02-12 05:50] LABS: SARS-CoV-2 RNA Undetected (Undetected); SARS-CoV-2 Specimen Source Nasopharynx
== END 2020-02-10 07:30 ==
DX: Z11.59 Encounter for screening for other viral diseases (principal)
CPT/HCPCS: U0003

== ENCOUNTER 2020-05-11 11:47 | Outpatient (REF) | payer MEDICAID, SELFPAY ==
--- NOTE | 2020-05-11 10:15 | PAPFT_PTH ---
PATIENT: Bird [address] LOC: [facility] U#:[id number] AGE/SX: 24/F ROOM: RE05/11/[address]: LATOYA Blank : 1995 BED: DIS: 05/11/2020 SPEC #: [id number] RECD: 05/11/20 13:07 STATUS: JOSE MARIA REKali #: [id number] MARY BETH: 05/11/20 10:[address]: Martha Monahan DEPT: [facility] Cytology RECD BY: Corrine King ENTERED: 05/11/20 13:07 SP TYPE: PAPFT OTHR DR: Buffy Garcia APRN Tissues: 1 - CX/ENDOCX FOR PAP SMEARS Procedures: PAP THIN PREP/[facility] Screening Comments: [id number] ([facility])
== END 2020-05-11 12:07 ==
LOC: LBN 11:47
PROVIDERS: Visit Provider Nurse Practitioner Family
DX: Z12.4 Encounter for screening for malignant neoplasm of cervix (principal)
CPT/HCPCS: 88142

== ENCOUNTER 2020-06-01 16:12 | Outpatient (CLI) | payer MEDICAID, SELFPAY ==
[2020-06-01 17:00] LABS: HCG Quant, Pregnancy < 1 mIU/mL (1-3)
== END 2020-06-01 16:32 ==
PROVIDERS: Visit Provider Nurse Practitioner Women's Health
DX: Z72.51 High risk heterosexual behavior (principal); Z97.5 Presence of (intrauterine) contraceptive device
CPT/HCPCS: 36415; 84702

== ENCOUNTER 2020-06-08 20:29 | Outpatient (REF) | payer MEDICAID, SELFPAY ==
[2020-06-10 09:45] LABS: COVID-19 RT-PCR Result NEGATIVE (Negative)
== END 2020-06-08 20:49 ==
LOC: LBN 20:29
PROVIDERS: Visit Provider Family Medicine
DX: J02.9 Acute pharyngitis, unspecified (principal)
CPT/HCPCS: U0003; 87070

== ENCOUNTER 2020-06-17 11:38 | Outpatient (CLI) | payer MEDICAID, SELFPAY ==
[2020-06-17 13:03] LABS: HCG Quant, Pregnancy 1 mIU/mL (1-3)
== END 2020-06-17 11:58 ==
PROVIDERS: Visit Provider Nurse Practitioner Women's Health
DX: Z97.5 Presence of (intrauterine) contraceptive device (principal); Z32.01 Encounter for pregnancy test, result positive
CPT/HCPCS: 84702

== ENCOUNTER 2020-07-02 21:02 | Emergency (ER) | payer MEDICAID, SELFPAY ==
[2020-07-02 21:07] VITALS: BP 127/83; PULSE 81; RESP 16; TEMP 36.6; O2SAT 98
--- NOTE | 2020-07-02 21:15 | DI.CT_ITS ---
EXAM: CT BRAIN CTA CLINICAL HISTORY: left sided headaches. TECHNIQUE: Imaging Protocol: Both noninfused and contrast infused CT scans of the brain were perform ed. IV Contrast Dose =75 cc Axial computed tomography images with coronal and sagittal reformatted images were created and review ed COMPARISON: CT CT ABDOMEN PELVIS W from 11/05/2018 FINDINGS: There are no skull fractures nor fluid in the visualized paranasal sinuses. Mild bilateral mucosal thickening is noted in the maxillary sinuses There is no evidence of intracranial hemorrhage, mass effect, or shift of midline structures. There are no extra-axial fluid collections. The ventricles are not enlarged or shifted and there is no blo od within the ventricular system nor within the basal cisterns.No, the brain appears somewhat [place] us lack of visualization of extra-axial spaces and this is probably consistent with the history here. There are no ring enhancing lesions in the brain and there is no abnormal meningeal enhancement, foca l or diffuse. Brain CTA: Both internal carotid artery are demonstrated to be patent in the skull base-carotid canals as well a s within the cavernous sinuses. Supraclinoid aspects are patent. Both middle cerebral arteries appe ar patent. A1 segments are patent. Anterior cerebral arteries are patent. No evidence of obvious a neurysm at level of the anterior communicating artery. In the posterior circulation the basilar artery is formed by contribution from both vertebral arterie s. There is no evidence of intraluminal thrombosis. Distally both posterior cerebral arteries appea r patent. There is no evidence of aneurysm of the tip of the basilar artery. IMPRESSION: No evidence of intracranial hemorrhage, intra or extra-axial. No ring enhancing lesions in the brain . No intraluminal thrombus nor vascular occlusion. No obvious aneurysms.. There is lack of visualization of krzzp-hfxth-[id number] spaces which may indicate an element of diffuse b rain edema. First read by [facility]. Called final report to ER by myself 07/03/2020 8:15 a.m. RADIATION DOSE DELIVERED: 772.83mGy.cm Total DLP DATA REPOSITORY: All CT scans at this facility are submitted to the National Radiology Data Registry (NRDR) Dose Index Registry (DIR) with the [employer] (ACR). RADIATION OPTIMIZATION: All CT scans at this facility use at least one of these dose optimization te chniques: automated exposure control; mA and/or kV adjustment per patient size (includes targeted exa ms where dose is matched to clinical indication); or iterative reconstruction.
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
[2020-07-02] MEDS: Normal Saline 1,000 ML 1000 ML IV (21:35)
[2020-07-02] MEDS: Dexamethasone 10 MG/ML VIAL IVP (21:37)
[2020-07-02] MEDS: Ketorolac 15 MG/ML VIAL IVP (21:37)
[2020-07-02] MEDS: Prochlorperazine 10 MG/2 ML VIAL IVP (21:38)
[2020-07-02 21:44] LABS: Abs Immature Grans 0.04 10^3/uL (0.0-0.06); Absolute Basophil Count 0.05 10^3/uL (0.0-0.2); Absolute Lymphocyte Count 4.08 10^3/uL (1.2-3.4); Absolute Monocyte Count 1.07 10^3/uL (0.1-0.8); Absolute Neutrophil Count 6.57 10^3/uL (1.2-6.7); Basophils % 0.4; HCT 42.2 % (36.0-46.0); HGB 13.6 g/dL (11.2-15.7); Immature Grans % 0.3; Lymphocytes % 33.5; MCH 28.3 pg (27.0-33.0); MCHC 32.2 % (32.0-36.0); MCV 87.9 fL (80-95); MPV 10.7 fL (8.0-11.0); Monocytes % 8.8; Nucleated RBC 0 %; Platelet Count 458 10^3/uL (130-400); RDW 12.7 % (11.7-14.6); RDW-SD 41.3 fL; WBC 12.17 10^3/uL (4.4-10.8)
[2020-07-02] MEDS: diphenhydrAMINE 50 MG/ML VIAL 25 MG IVP (21:46)
[2020-07-02] MEDS: Omnipaque 350 MG/ML 100 ML BTL IJ (21:54)
[2020-07-02 21:55] LABS: Absolute Eosinophil Count 0.37 10^3/uL (0.0-0.7)
[2020-07-02] MEDS: Normal Saline - Diluent 50 ML VIAL IV (21:55)
[2020-07-02 21:59] LABS: ALT 21 U/L (14-59); AST 14 U/L (15-37); Albumin 4.3 g/dL (3.4-5.0); Alkaline Phosphatase 77 U/L (46-116); Anion Gap 9.5 mmol/L (3-11); BUN 12 mg/dL (7-18); Bilirubin, Total 0.2 mg/dL (0.2-1.0); CO2 26.5 mmol/L (21.0-32.0); CREATININE 0.98 mg/dL (0.55-1.02); Chloride 103 mmol/L (98-107); Glucose 95 mg/dL (74-106); Potassium 3.5 mmol/L (3.5-5.1); Sodium 139 mmol/L (136-145); Total Protein 8.5 g/dL (6.4-8.2)
[2020-07-02 22:15] LABS: Bilirubin Negative (Negative); Blood Negative (Negative); Clarity Clear (Clear); Glucose Negative (Negative); Ketones Negative (Negative); Leukocyte Esterase Negative (Negative); Nitrite Negative (Negative); Specific Gravity 1.015 (1.005-1.025); Urobilinogen 0.2 EU/dL (Up TO 0.2); pH 7.5 (5-8)
--- NOTE | 2020-07-02 22:21 | NUR.NOTE ---
Nursing Note: referal faxed to neuro 07/02/20
--- NOTE | 2020-07-02 22:40 | DI.VRAD_ITS ---
PROCEDURE INFORMATION: Exam: CT Angiography Head With Contrast Exam date and time: 07/02/2020 9:24 PM Age: 24 years old Clinical indication: Pain; Headache; Patient HX: Migraine since jun 08. Visual changes with numbness and tingling in both arm. TECHNIQUE: Imaging protocol: Computed tomography angiography of the head with intravenous contrast. 3D rendering (Not supervised by radiologist): MIP and/or 3D reconstructed images were created by the technologist. Radiation optimization: All CT scans at this facility use at least one of these dose optimization techniques: automated exposure control; mA and/or kV adjustment per patient size (includes targeted exams where dose is matched to clinical indication); or iterative reconstruction. Contrast material: OMNIPAQUE 350; Contrast volume: 100 ml; Contrast route: INTRAVENOUS (IV); COMPARISON: No relevant prior studies available. FINDINGS: ANTERIOR CIRCULATION: Right internal carotid artery: Unremarkable. Intracranial segment is patent with no significant stenosis. No aneurysm. Right middle cerebral artery: Unremarkable. No occlusion or significant stenosis. No aneurysm. Right anterior cerebral artery: Unremarkable. No occlusion or significant stenosis. No aneurysm. Left internal carotid artery: Unremarkable. Intracranial segment is patent with no significant stenosis. No aneurysm. Left middle cerebral artery: Unremarkable. No occlusion or significant stenosis. No aneurysm. Left anterior cerebral artery: Unremarkable. No occlusion or significant stenosis. No aneurysm. POSTERIOR CIRCULATION: Right vertebral artery: Unremarkable. No occlusion or significant stenosis. No aneurysm. Left vertebral artery: Unremarkable. No occlusion or significant stenosis. No aneurysm. Basilar artery: Unremarkable. No occlusion or significant stenosis. No aneurysm. Right posterior cerebral artery: Unremarkable. No occlusion or significant stenosis. No aneurysm. Left posterior cerebral artery: Unremarkable. No occlusion or significant stenosis. No aneurysm. Brain: No definite mass, mass effect, or midline shift. Cerebral ventricles: No ventriculomegaly. Bones/joints: Unremarkable. No acute fracture. Soft tissues: Unremarkable. IMPRESSION: No large vessel stenosis, aneurysm or occlusion this is within the intracranial vessels. PROCEDURE INFORMATION: Exam: CT Head Without Contrast Exam date and time: 07/02/2020 9:24 PM Age: 24 years old Clinical indication: Pain; Headache; Patient HX: Migraine since jun 08. Visual changes with numbness and tingling in both arm. TECHNIQUE: Imaging protocol: Computed tomography of the head without contrast. Other technique: STROKE PROTOCOL was implemented. COMPARISON: No relevant prior studies available. FINDINGS: Brain: Normal. No hemorrhage. Unremarkable white matter. No mass effect. Cerebral ventricles: No ventriculomegaly. Bones/joints: Unremarkable. No acute fracture. Paranasal sinuses: Visualized sinuses are unremarkable. No fluid levels. Mastoid air cells: Visualized mastoid air cells are well aerated. Soft tissues: Unremarkable. IMPRESSION: No acute intracranial abnormality. ASSESSMENT: ASPECTS ([place] Stroke Program Early CT Score) is 10. Dictated and Authenticated by: Kia Clements MD. Ordering:BOB Figueroa MD
[2020-07-02 22:46] VITALS: BP 123/61; PULSE 62; RESP 16; O2SAT 99
== END 2020-07-02 22:40 | disposition home or self-care (01) ==
PROVIDERS: Emergency Provider Emergency Medicine
DX: G43.809 Other migraine, not intractable, without status migrainosus (principal); R11.0 Nausea
CPT/HCPCS: 36415; 70496; 80053; 81025; 96361; 96374; 96375; 99285; 81003; 85025; 99284; J0780; J1100; J1200; J1885; J3490

== ENCOUNTER 2020-07-24 16:40 | Outpatient (REF) | payer MEDICAID, SELFPAY | END 2020-07-24 16:41 | disposition home or self-care (01) | LOC: LBN 16:40 | PROVIDERS: Visit Provider Nurse Practitioner Family | DX: R30.0 Dysuria (principal) | CPT/HCPCS: 87086 ==

== ENCOUNTER 2020-09-10 10:15 | Outpatient (CLI) | payer MEDICAID, SELFPAY ==
--- NOTE | 2020-09-10 10:15 | RT.EKG_ITS ---
APPROVED REPORT Exam: Resting ECG Patient Location: O HR:66 bpm ECG Measurements Heart Rate 66 AXIS [place] 161 P 28 QRSd 92 QRS 18 QT 412 T 25 QTc 430 Conclusion Sinus rhythm...normal P axis, V-rate 60- 99
== END 2020-09-10 10:16 | disposition home or self-care (01) ==
LOC: DI.CM 10:16
PROVIDERS: Visit Provider Nurse Practitioner Family
DX: R07.9 Chest pain, unspecified (principal)
CPT/HCPCS: 93010

== ENCOUNTER 2020-09-10 11:07 | Emergency (ER) | payer MEDICAID, SELFPAY ==
--- NOTE | 2020-09-10 11:00 | RT.EKG_ITS ---
APPROVED REPORT Exam: Resting ECG Patient Location: E HR:71 bpm ECG Measurements Heart Rate 71 AXIS [place] 160 P 38 QRSd 92 QRS 32 QT 409 T 25 QTc 446 Conclusion Sinus rhythm...normal P axis, V-rate 60- 99 I have reviewed and interpreted ECG and agree with software generated interpretation.
[2020-09-10 11:16] VITALS: BP 132/82; PULSE 80; RESP 18; TEMP 36.7; O2SAT 96
[2020-09-10 11:27] VITALS: PULSE 92
[2020-09-10 11:30] VITALS: PULSE 82
[2020-09-10 11:40] VITALS: PULSE 81
[2020-09-10 11:44] VITALS: RESP 12
[2020-09-10 11:57] LABS: Abs Immature Grans 0.01 10^3/uL (0.0-0.06); Absolute Basophil Count 0.04 10^3/uL (0.0-0.2); Absolute Eosinophil Count 0.21 10^3/uL (0.0-0.7); Absolute Lymphocyte Count 2.38 10^3/uL (1.2-3.4); Absolute Monocyte Count 0.63 10^3/uL (0.1-0.8); Absolute Neutrophil Count 4.72 10^3/uL (1.2-6.7); Basophils % 0.5; Eosinophils % 2.6; HCT 41.9 % (36.0-46.0); HGB 13.6 g/dL (11.2-15.7); Immature Grans % 0.1; Lymphocytes % 29.8; MCH 28.3 pg (27.0-33.0); MCHC 32.5 % (32.0-36.0); MCV 87.1 fL (80-95); MPV 10.8 fL (8.0-11.0); Monocytes % 7.9; Neutrophils % 59.1; Nucleated RBC 0 %; Platelet Count 434 10^3/uL (130-400); RBC 4.81 10^6/uL (3.93-5.22); RDW 12.7 % (11.7-14.6); RDW-SD 40.4 fL; WBC 7.99 10^3/uL (4.4-10.8)
[2020-09-10 12:13] LABS: ALT 25 U/L (14-59); AST 19 U/L (15-37); Albumin 3.9 g/dL (3.4-5.0); Alkaline Phosphatase 73 U/L (46-116); Anion Gap 11.1 mmol/L (3-11); BUN 10 mg/dL (7-18); Bilirubin, Total 0.3 mg/dL (0.2-1.0); CO2 25.9 mmol/L (21.0-32.0); CREATININE 0.8 mg/dL (0.55-1.02); Chloride 104 mmol/L (98-107); Glucose 86 mg/dL (74-106); Potassium 3.7 mmol/L (3.5-5.1); Sodium 141 mmol/L (136-145); Total Protein 7.7 g/dL (6.4-8.2); Troponin I < 0.05 ng/mL (<0.06)
--- NOTE | 2020-09-10 12:24 | DI.RAD_ITS ---
EXAM: XR CHEST 2V PA LATERAL CLINICAL HISTORY: chest pain. TECHNIQUE: 2D digital imaging was performed. COMPARISON: CR XR CHEST 2V PA LATERAL from 12/18/2019 FINDINGS: Heart size is normal. The mediastinum is not widened. Lungs are clear. No infiltrates nor pleural effusions. IMPRESSION: No acute pulmonary findings.No significant change compared to 12/18/2019 sign rib DATA REPOSITORY: RADIATION DOSE DELIVERED:
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
[2020-09-10 13:08] VITALS: PULSE 60; O2SAT 96
[2020-09-10] MEDS: Acetaminophen 500 MG TAB 1000 MG PO (13:15)
== END 2020-09-10 13:24 | disposition home or self-care (01) ==
PROVIDERS: Emergency Provider Physician Assistant
DX: M54.12 Radiculopathy, cervical region (principal); R07.9 Chest pain, unspecified
CPT/HCPCS: 36415; 80053; 81025; 93005; 99285; 71046; 84484; 85025; 93010; 99281

== ENCOUNTER 2020-11-12 02:36 | Outpatient (CLI) | payer MEDICAID, SELFPAY ==
[2020-11-12 15:22] LABS: TSH (W/Ref FT4) 1.38 uIU/mL (0.36-3.74)
[2020-11-12 15:48] LABS: HCG Quant, Pregnancy < 1 mIU/mL (1-3)
== END 2020-11-12 02:37 | disposition home or self-care (01) ==
LOC: LBO 02:37
PROVIDERS: Nurse Practitioner Family
DX: Z13.29 Encounter for screening for other suspected endocrine disorder (principal); Z97.8 Presence of other specified devices
CPT/HCPCS: 36415; 84443; 84702

== ENCOUNTER 2020-12-17 04:26 | Outpatient (CLI) | payer MEDICAID, SELFPAY ==
[2020-12-22 08:53] LABS: Testosterone, Free 1.33 ng/dL (0.06-1.08); Testosterone, Total 46 ng/dL (8-60)
== END 2020-12-17 04:27 | disposition home or self-care (01) ==
LOC: LBO 04:26
PROVIDERS: Visit Provider Nurse Practitioner Women's Health
DX: N92.5 Other specified irregular menstruation (principal)
CPT/HCPCS: 36415; 84402; 84403

== ENCOUNTER 2021-02-04 03:17 | Outpatient (CLI) | payer MEDICAID, SELFPAY ==
--- NOTE | 2021-02-04 15:00 | NS.NUTBLAN_ITS ---
Bird was referred for Medical Nutrition Therapy for weight managment and PCOS. Bird reports having frequent low blood sugars (does not test but feels dizzy) and is not able to tolerate metformin. She has started to try to eat healthy but is frustrated in feeling tired and unwell. Requests Dexcom continuous glucose monitor to better assess glucose variations. [facility] has several Dexcom samples made available to pt. Session today focused on placing dexcom and reviewed blood sugar goals and dietary interventions for weight management. She sees a data transcriber elsewhere and only wanted the dexcom at this time. Provided tech support number for trouble shooting. No follow up planned
== END 2021-02-04 03:18 | disposition home or self-care (01) ==
LOC: DS 03:17
PROVIDERS: PCP Nurse Practitioner Family; Visit Provider Dietitian, Registered
DX: E28.2 Polycystic ovarian syndrome (principal); R73.09 Other abnormal glucose; Z71.3 Dietary counseling and surveillance
CPT/HCPCS: 97802

== ENCOUNTER 2021-03-24 15:16 | Outpatient (REF) | payer MEDICAID, SELFPAY ==
[2021-03-24 15:36] LABS: HCT 39.3 % (36.0-46.0); HGB 12.5 g/dL (11.2-15.7); MCH 28.3 pg (27.0-33.0); MCHC 31.8 % (32.0-36.0); MCV 88.9 fL (80-95); MPV 11.6 fL (8.0-11.0); Platelet Count 418 10^3/uL (130-400); RBC 4.42 10^6/uL (3.93-5.22); RDW 13.2 % (11.7-14.6); WBC 10.01 10^3/uL (4.4-10.8)
[2021-03-24 15:53] LABS: ALT 23 U/L (14-59); AST 16 U/L (15-37); Alkaline Phosphatase 73 U/L (46-116); Anion Gap 4.8 mmol/L (3-11); BUN 12 mg/dL (7-18); Bilirubin, Total 0.1 mg/dL (0.2-1.0); CO2 30.2 mmol/L (21.0-32.0); CREATININE 0.8 mg/dL (0.55-1.02); Calcium 8.9 mg/dL (8.5-10.1); Chloride 107 mmol/L (98-107); Glucose 77 mg/dL (74-106); Potassium 4.5 mmol/L (3.5-5.1); Sodium 142 mmol/L (136-145); TSH (W/Ref FT4) 1.71 uIU/mL (0.36-3.74); Total Protein 7.2 g/dL (6.4-8.2)
== END 2021-03-24 15:17 | disposition home or self-care (01) ==
LOC: LBN 15:16
PROVIDERS: PCP Nurse Practitioner Family; Visit Provider Nurse Practitioner Family
DX: R53.82 Chronic fatigue, unspecified (principal)
CPT/HCPCS: 80053; 85027; 84443

== ENCOUNTER 2021-05-06 01:02 | Outpatient (CLI) | payer MEDICAID, SELFPAY ==
--- NOTE | 2021-05-06 06:30 | DI.US_ITS ---
Exam(s) US ABDOMEN EXAM: US ABDOMEN CLINICAL HISTORY: ruq pain/nausea/dairrhea/post-,r10.11,r19.7,m54.5 TECHNIQUE: Ultrasound of complete upper abdomen performed using standard protocol. COMPARISON: CT CT ABDOMEN PELVIS W from 11/05/2018 US US PELVIS TRANSVAGINAL from 11/14/2019 FINDINGS: There is no ascites evident. LIVER: There are no hepatic lesions evident nor obvious dilatation of intrahepatic ducts. GALLBLADDER/BILIARY: There are no gallstones. No gallbladder wall edema nor pericholecystic fluid. The common hepatic duct isnot dilated, measuring 5mm at the level of todd hepatis. PANCREAS: There is no evidence of pancreatic mass nor dilatation of the pancreatic duct. SPLEEN: The spleen is not enlarged and there are no intrasplenic lesions evident. KIDNEYS:Kidneys exhibit normal size with no evidence of solid mass, calculus, nor hydronephrosis. No cortical cysts evident. ABDOMINAL AORTA: There is no evidence of abdominal aortic aneurysm. IVC: Normal diameter where visualized. IMPRESSION: 1. No evidence of cholelithiasis nor dilatation of the biliary tree. 2. No other significant ultrasound findings in the upper abdomen. 3. There is no ascites. DATA REPOSITORY:
== END 2021-05-06 01:22 ==
PROVIDERS: PCP Nurse Practitioner Family; Visit Provider Surgery
DX: R10.11 Right upper quadrant pain (principal); R19.7 Diarrhea, unspecified
CPT/HCPCS: 76700

== ENCOUNTER 2021-08-11 00:17 | Outpatient (CLI) | payer MEDICAID, SELFPAY | END 2021-08-11 00:37 | PROVIDERS: PCP Nurse Practitioner Family; Visit Provider Surgery ==

== ENCOUNTER 2021-08-17 03:21 | Outpatient (CLI) | payer MEDICAID, SELFPAY | END 2021-08-17 03:22 | disposition home or self-care (01) | LOC: LBO 03:21 | PROVIDERS: PCP Nurse Practitioner Family; Visit Provider Family Medicine ==

== ENCOUNTER 2021-10-04 15:39 | Outpatient (REF) | payer MEDICAID, SELFPAY ==
[2021-10-04 16:58] LABS: Abs Immature Grans 0.03 10^3/uL (0.0-0.06); Absolute Basophil Count 0.04 10^3/uL (0.0-0.2); Absolute Eosinophil Count 0.22 10^3/uL (0.0-0.7); Absolute Lymphocyte Count 2.74 10^3/uL (1.2-3.4); Basophils % 0.4; HCT 39.9 % (36.0-46.0); HGB 12.8 g/dL (11.2-15.7); Immature Grans % 0.3; Lymphocytes % 24.6; MCH 28.1 pg (27.0-33.0); MCHC 32.1 % (32.0-36.0); MCV 87.7 fL (80-95); MPV 11.5 fL (8.0-11.0); Neutrophils % 63.7; Platelet Count 410 10^3/uL (130-400); RBC 4.55 10^6/uL (3.93-5.22); RDW 13.2 % (11.7-14.6); RDW-SD 42.2 fL; WBC 11.13 10^3/uL (4.4-10.8)
[2021-10-04 16:59] LABS: Absolute Neutrophil Count 7.09 10^3/uL (1.2-6.7)
== END 2021-10-04 15:40 | disposition home or self-care (01) ==
LOC: LBN 15:39
PROVIDERS: PCP Nurse Practitioner Family; Visit Provider Nurse Practitioner Family
DX: R53.83 Other fatigue (principal); R11.0 Nausea; N91.0 Primary amenorrhea
CPT/HCPCS: 80048; 84702; 85025

== ENCOUNTER 2021-10-15 01:53 | Outpatient (CLI) | payer MEDICAID, SELFPAY ==
[2021-10-15 09:26] LABS: Abs Immature Grans 0.02 10^3/uL (0.0-0.06); Absolute Basophil Count 0.04 10^3/uL (0.0-0.2); Absolute Eosinophil Count 0.18 10^3/uL (0.0-0.7); Absolute Lymphocyte Count 1.93 10^3/uL (1.2-3.4); Absolute Neutrophil Count 4.96 10^3/uL (1.2-6.7); Basophils % 0.5; Eosinophils % 2.3; HCT 39.5 % (36.0-46.0); HGB 12.6 g/dL (11.2-15.7); Immature Grans % 0.3; Lymphocytes % 24.6; MCH 27.9 pg (27.0-33.0); MCHC 31.9 % (32.0-36.0); MCV 87 fL (80-95); MPV 10.8 fL (8.0-11.0); Monocytes % 8.9; Neutrophils % 63.4; Platelet Count 414 10^3/uL (130-400); RBC 4.52 10^6/uL (3.93-5.22); RDW 12.9 % (11.7-14.6); RDW-SD 41.3 fL; WBC 7.83 10^3/uL (4.4-10.8)
[2021-10-15 09:41] LABS: Hemoglobin A1C 5.7 % (<5.7)
[2021-10-15 10:43] LABS: Iron 82 ug/dL (50-170); Total Iron Binding Capacity 301 ug/dL (250-450)
[2021-10-15 11:35] LABS: ALT 19 U/L (14-59); AST 15 U/L (15-37); Albumin 3.9 g/dL (3.4-5.0); Alkaline Phosphatase 68 U/L (46-116); Anion Gap 10.8 mmol/L (3-11); BUN 13 mg/dL (7-18); Bilirubin, Total 0.3 mg/dL (0.2-1.0); CO2 23.2 mmol/L (21.0-32.0); CREATININE 0.8 mg/dL (0.55-1.02); Calcium 8.6 mg/dL (8.5-10.1); Calculated LDL 128 mg/dL (<100); Chloride 105 mmol/L (98-107); Cholesterol 183 mg/dL (<200); Ferritin 63 ng/mL (8-252); Folate 4.6 ng/mL (8.6-20.0); Glucose 82 mg/dL (74-106); HDL Cholesterol 43 mg/dL (40-60); Potassium 4.4 mmol/L (3.5-5.1); Sodium 139 mmol/L (136-145); TSH 1.76 uIU/mL (0.36-3.74); Total Protein 7.1 g/dL (6.4-8.2); Triglyceride 63 mg/dL (<150); Vitamin B12 515 pg/mL (193-986)
[2021-10-18 13:51] LABS: Helicobacter pylori Ag, Feces Negative (Negative)
[2021-10-19 21:54] LABS: Thiamine (Vitamin B1), WB 127 nmol/L (70-180)
== END 2021-10-15 01:54 | disposition home or self-care (01) ==
LOC: LBO 01:53
PROVIDERS: PCP Nurse Practitioner Family; Visit Provider Nurse Practitioner Family
DX: E66.01 Morbid (severe) obesity due to excess calories (principal); Z68.41 Body mass index [BMI] 40.0-44.9, adult; Z71.3 Dietary counseling and surveillance
CPT/HCPCS: 36415; 80053; 80061; 82306; 87338; 82607; 82728; 82746; 83036; 83540; 83550; 84425; 84443; 85025

== ENCOUNTER 2021-12-27 16:48 | Outpatient (REF) | payer MEDICAID, SELFPAY ==
[2021-12-29 12:59] LABS: Chlamydia Result Negative (Negative); GC Result Negative (Negative)
== END 2021-12-27 16:49 | disposition home or self-care (01) ==
LOC: LBN 16:48
PROVIDERS: PCP Nurse Practitioner Family; Visit Provider Family Medicine
DX: B37.3 Candidiasis of vulva and vagina (principal); A74.89 Other chlamydial diseases
CPT/HCPCS: 87491; 87591; 87480; 87510; 87660

== ENCOUNTER → 2022-03-30 00:49 | Outpatient (CLI) | payer MEDICAID, SELFPAY ==
--- NOTE | 2022-03-30 07:15 | DI.US_ITS ---
Exam(s) US BREAST RT COMPLETE EXAM: US BREAST RT COMPLETE CLINICAL HISTORY: right breast pain, fibrocystic breasts,N64.4 TECHNIQUE: Ultrasound performed using standard protocol. COMPARISON: No exams were available for comparison FINDINGS: Whole breast ultrasound was performed, the patient reportedly has a history of right breast pain. Th ere is unremarkable appearance of the breast parenchyma. There is no evidence of a mass or cyst. IMPRESSION: Normal right breast ultrasound. DATA REPOSITORY:
== END ==
PROVIDERS: PCP Nurse Practitioner Family; Visit Provider Obstetrics & Gynecology
DX: N64.4 Mastodynia (principal)
CPT/HCPCS: 76642

== ENCOUNTER 2022-04-02 20:45 | Emergency (ER) | payer MEDICAID, SELFPAY ==
[2022-04-02 20:52] VITALS: BP 126/74; PULSE 84; RESP 18; TEMP 36.6; O2SAT 98
--- NOTE | 2022-04-02 21:00 | DI.RAD_ITS ---
Exam(s) XR WRIST RT COMPLETE EXAM: XR WRIST RT COMPLETE CLINICAL HISTORY: distal ulna pain after fall. TECHNIQUE: 2D digital imaging was performed of the right wrist. Three views were obtained. PA, lat eral and oblique views were obtained. COMPARISON: No exams were available for comparison FINDINGS: BONES: No acute fracture is present. No bony destructive lesion is seen. JOINTS: The carpal bones are normally aligned. SOFT TISSUE: Normal. IMPRESSION: Unremarkable radiographs of the right wrist. DATA REPOSITORY: RADIATION DOSE DELIVERED:
[2022-04-02] MEDS: Ibuprofen 800 MG TAB PO (21:16)
[2022-04-02] MEDS: Acetaminophen 500 MG TAB 1000 MG PO (21:16)
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
--- NOTE | 2022-04-02 21:48 | DI.VRAD_ITS ---
PROCEDURE INFORMATION: Exam: XR Right Wrist Exam date and time: 04/02/2022 9:21 PM Age: 26 years old Clinical indication: Injury or trauma; Sprain or strain; Wrist; Right; Patient HX: S/P fall TECHNIQUE: Imaging protocol: Radiologic exam of the Right wrist. Views: 3 or more views. COMPARISON: No relevant prior studies available. FINDINGS: Bones/joints: Normal. Soft tissues: Normal. IMPRESSION: No acute findings. Dictated and Authenticated by: Abilio Lua MD. Ordering:MONI Medrano MD
== END 2022-04-02 22:06 | disposition home or self-care (01) ==
PROVIDERS: Emergency Provider Student in an Organized Health Care Education/Training Program; PCP Nurse Practitioner Family
DX: S63.501A Unspecified sprain of right wrist, initial encounter (principal); Z87.891 Personal history of nicotine dependence; W19.XXXA Unspecified fall, initial encounter
CPT/HCPCS: 99283; 73110; 99282

== ENCOUNTER 2022-07-12 07:22 | Outpatient (CLI) | payer MEDICAID, SELFPAY ==
[2022-07-12 13:42] LABS: HGB 13.1 g/dL (11.2-15.7); MCH 28.2 pg (27.0-33.0); MCHC 32.8 % (32.0-36.0); MCV 86 fL (80-95); MPV 11.5 fL (8.0-11.0); Platelet Count 366 10^3/uL (130-400); RBC 4.64 10^6/uL (3.93-5.22); RDW 12.9 % (11.7-14.6); RDW-SD 40.5 fL
[2022-07-12 14:33] LABS: Anion Gap 6.8 mmol/L (3-11); BUN 11 mg/dL (7-18); CO2 28.2 mmol/L (21.0-32.0); CREATININE 0.9 mg/dL (0.55-1.02); Calcium 9.1 mg/dL (8.5-10.1); Chloride 107 mmol/L (98-107); Estimated GFR 91.55 (mL/min/1.73m2); Glucose 75 mg/dL (74-106); Potassium 3.9 mmol/L (3.5-5.1); Sodium 142 mmol/L (136-145)
[2022-07-12 15:42] LABS: HCG Qual (Serum) Negative
== END 2022-07-12 07:23 | disposition home or self-care (01) ==
LOC: LBO 07:22
PROVIDERS: PCP Nurse Practitioner Family; Visit Provider Obstetrics & Gynecology Gynecology
DX: R10.31 Right lower quadrant pain (principal); Z30.2 Encounter for sterilization; Z01.818 Encounter for other preprocedural examination; Z01.812 Encounter for preprocedural laboratory examination
CPT/HCPCS: 36415; 80048; 85027; 86850; 86900; 86901; 84703

== ENCOUNTER 2022-07-13 06:04 | Day surgery (SDC) | payer MEDICAID, SELFPAY ==
[2022-07-13] VITALS (11 sets, daily range): BP systolic 81–112; BP diastolic 36–67; PULSE 57–77; RESP 12–20; TEMP 36–36.8; O2SAT 97–99; BMI 38.7
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
[2022-07-13] MEDS: Lactated Ringers 1,000 ML 125 ML IV (06:46)
[2022-07-13] MEDS: Bupivacaine 0.25% Pres-Free 30 ML VIAL (08:08)
--- NOTE | 2022-07-13 08:24 | FALL_PTH ---
PATIENT: Bird [address] LOC: [facility] U#:[id number] AGE/SX: 26/F ROOM: RE07/13/[address]: Kavita Daniels : 1995 BED: DIS: 07/13/2022 SPEC #: [id number] RECD: 07/13/22 12:33 STATUS: JOSE MARIA REKali #: [id number] MARY BETH: 07/13/22 08:[address]: Kavita Daniels DEPT: Surgical Specimen RECD BY: Corrine King ENTERED: 07/13/22 12:34 SP TYPE: Fall OTHR DR: Lan Franks, ROSA MARIA Tissues: 1 - FALLOPIAN TUBE (STERILIZATION) 2 - FALLOPIAN TUBE (STERILIZATION) Procedures: GROSS AND MICRO LEVEL 2 Comments: [id number]
--- NOTE | 2022-07-13 08:48 | W.PM.DSUDISC ---
Date of service: 07/13/22 Time of Service: 08:48 Discharge Plan Disposition Patient Disposition: Home Condition: Good Discharge Details Reason For Visit: tubal sterilization Attending Provider: Kavita Daniels Primary Care Provider: Lan Franks Home Meds and New Rx's Prescriptions: No Action ProAir RespiClick 90 mcg/actuation aerosol powdr breath activated 2 inh IH Q4H PRN (Reason: shortness of breath) Qty: 1 3RF oxycodone-acetaminophen [Endocet] 5-325 mg tablet 1 tab PO Q6H MDD 4 PRN (Reason: pain) Qty: 5 0RF spironolactone [Aldactone] 50 mg tablet 50 mg PO DAILY Qty: 60 4RF ondansetron HCl 4 mg tablet 4 mg PO Q8H PRN (Reason: nausea and vomiting) Qty: 5 0RF Rx Instructions: use while taking narcotics Victoza 3-Chava 0.6 mg/0.1 mL (18 mg/3 mL) pen injector See Rx Instructions subcut .COMPLEX Qty: 9 2RF Rx Instructions: inject 0.6mg subcutaneously once daily x 7 days; then 1.2mg daily, not to exceed 1.8mg/day subcut (DME) pen needle, diabetic [Pen Needle] 31 gauge x 3/16 needle See Rx Instructions .Route Qty: 100 3RF Rx Instructions: Use 1 SQ once daily As directed for Victoza pen sertraline 100 mg tablet 100 mg PO DAILY Qty: 90 3RF rizatriptan 10 mg tablet See Rx Instructions PO .COMPLEX PRN Label Comments: patient has not picked up prescription yet as of 07/02/20 2100 Rx Instructions: take 1 tab at onset of headache; if no relief may repeat 1 tab after at least 2 hrs; max = 2 tabs/24 hr PO omeprazole 40 mg capsule,delayed release(DR/EC) 40 mg PO DAILY PRN Discharge Instructions Additional Instructions: You may return to work without restrictions on 07/18/2022. Use the ondansetron along with the Percocet to prevent nausea and vomiting. And avoid constipation. The incisions will be covered with tape that can stay on until it falls off. You may remove the dressing and take a shower in 24 hours. Keep your follow-up appointment with Dr. O'Jorge this planned to speak in a week by phone. 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
--- NOTE | 2022-07-13 09:04 | ROE_ITS ---
Date of service: 07/13/22 Time of Service: 09:05 Operative Note Operative Note DATE OF PROCEDURE: 07/13/22 PRE-OP DIAGNOSIS: multiparity, desire for tubal sterilization, right sided abdominal pain POST-OP DIAGNOSIS: same PROCEDURE: laparoscopic bilateral salpingectomy SURGEON: Kavita Daniels ASSISTING SURGEON: Rhoda Cochran Refer to Anesthesia Record ESTIMATED BLOOD LOSS: 0 PATHOLOGY: other (right and left fallopian tubes.) COMPLICATIONS: None Patient was transported to: PACU Patient's condition: stable Indications: 26yo female who requested permanent sterilization. Longstanding history of RLQ pain. Findings: Normal left adnexa. Right ovary and right fallopian tube tethered to right pel sophia sidewall with dense serosal adhesions. Procedure Description: Patient was taken to the operating room where she was placed in the dorsal supine position and endotracheal anesthesia was administered without difficulty. SCDs were in place. A surgical timeout was performed. She was prepped and draped in the usual sterile fashion. The umbilical fold was infiltrated with 0.25% Marcaine without epinephrine and 12 mm vertical skin incision was made in the umbilicus. Through this incision a Veres needle connected to carbon dioxide gas was inserted into the abdomen and intra-abdominal placement confirmed by drop in the intra-abdominal pressure. Once a pneumoperitoneum was established a 12 mm Visiport trocar was introduced into the abdomen under direct visualization. The patient was then placed in Trendelenburg and 2 sites on the abdomen approximately 6 cm diagonal to the right of and left of the umbilical incision were transilluminated the skin infiltrated with 0.25% Marcaine incised with a scalpel and underd irect visualization two 5 mm ports were placed in the right and left lower quadrants respectively. The abdomen was inspected with the above-noted findings. The left fallopian tube located and followed out to its fimbriated end and a LigaSure electrocautery device was used to clamp cauterize and transect the fimbria from the left mesosalpinx to the level of the left uterine cornua. The left fallopian tube was then delivered through the 10 mm umbilical port and passed off of the operative field. The right ovary and fallopian tube were both adherent to the upper pelvic side wall. A Ligasure electrocautery device was used to carefully dissect the adhesion away from the pelvic side wall. When the adnexa was detached from the side wall the right left fallopian tube located and followed out to its fimbriated end and a LigaSure electrocautery device was used to clamp, cauterize and transect the fimbria from the right mesosalpinx to the level of the left uterine cornua. The right fallopian tube was then delivered through the umbilical port. Both fallopian tube pedicles and the right abdominal side wall dissection site were inspected and noted to be hemostatic. Under direct visualization the two 5 mm ports were removed, pneumoperitoneum reduced, and the umbilical port removed. The fascia of the umbilical port site was reapproximated with interrupted suture of 0 Vicryl. The skin of all trocar sites was reapproximated with 4-0 Monocryl and covered with dry sterile dressings. The patient was awakened extubated and transported to recovery area in stable condition. All sponge lap needle counts are correct x2.
[2022-07-13] MEDS: ACETAMINOPHEN 1,000 MG/100 ML BTL 400 MG IVPB (09:07)
[2022-07-13] MEDS: fentaNYL 100 MCG/2 ML VIAL IVP ×2 (09:22→09:39)
[2022-07-13] MEDS: ePHEDrine 25 MG/5 ML Syringe IVP ×2 (09:30→10:05)
[2022-07-13] MEDS: oxyCODONE 5 mg/Acetaminophen 325 mg TAB 1 TAB PO (10:40)
--- NOTE | 2022-07-13 11:45 | W.ANESPOSTOP ---
Postoperative Evaluation Date, Time and Location Date Performed: 07/13/22 Time Performed: 11:45 Patient Location: Day Surgery Unit Vital Signs Most Recent Imported Vital Signs: Most Recent Vital Signs Temp Pulse Resp BP Pulse Ox 36 C L 77 16 102/62 97 07/13/22 11:00 07/13/22 11:00 07/13/22 11:00 07/13/22 11:00 07/13/22 11:00 Pain Score Most Recent Pain Score: Most Recent Pain Score Pain Level 6 07/13/22 11:00 Assessment Mental Status: Awake (Alert & Oriented to Patient Baseline) Airway and Respiratory Function: Patent airway with normal (patient baseline) respiratory exam Cardiovascular Function: Hemodynamically Stable Hydration Status: Adequately Hydrated Nausea & Vomiting: No Nausea or Vomiting Pain: Pain is tolerable per patient Peripheral Nerve Block: Patient did not receive a nerve block
== END 2022-07-13 11:55 | disposition home or self-care (01) ==
PROVIDERS: PCP Nurse Practitioner Family; Visit Provider Obstetrics & Gynecology Gynecology
PROC: (CPT 58661; principal; 2022-07-13 07:30)
DX: Z30.2 Encounter for sterilization (principal); E66.01 Morbid (severe) obesity due to excess calories
CPT/HCPCS: 58670; 81025; 88302; J0131; J1100; J1885; J2250; J2405; J2704; J3010

== ENCOUNTER 2022-08-24 09:00 | Outpatient (CLI) | payer MEDICAID, SELFPAY ==
--- NOTE | 2022-08-24 07:45 | DI.US_ITS ---
Exam(s) US PELVIS TRANSVAGINAL EXAM: US PELVIS TRANSVAGINAL CLINICAL HISTORY: Rlq pelvic pain after salpingectomy,z90.79,r10.31 TECHNIQUE: Transabdominal and transvaginal imaging was performed using standard protocol. COMPARISON: US US PELVIS TRANSVAGINAL from 11/14/2019 FINDINGS: UTERUS: Anteverted. 6.9 x 3.4 x 4.9 cm Endometrium: 7.5 mm Myometrium: Unremarkable. Cervix: Unremarkable. OVARIES: Right: Cyst or mass: None. Left: Cyst or mass: None. DOPPLER: Color: Symmetric and uniform flow to both ovaries. No hyperemia. CUL-DE-SAC: Free fluid: Small amount, in the physiologic range. IMPRESSION: 1. Normal-appearing uterus with endometrial stripe within normal limits. 2. Unremarkable bilateral ovaries. DATA REPOSITORY:
== END 2022-08-24 09:20 ==
LOC: DI 09:01
PROVIDERS: PCP Nurse Practitioner Family; Visit Provider Obstetrics & Gynecology Gynecology
DX: R10.31 Right lower quadrant pain (principal); Z90.79 Acquired absence of other genital organ(s)
CPT/HCPCS: 76830; 76856

== ENCOUNTER 2022-09-13 21:44 | Outpatient (REF) | payer MEDICAID, SELFPAY ==
[2022-09-13 22:12] LABS: Bilirubin Negative (Negative); Blood Negative (Negative); Clarity Clear (Clear); Glucose Negative (Negative); Ketones 15 mg/dL (Negative); Leukocyte Esterase Negative (Negative); Nitrite Negative (Negative); Specific Gravity 1.025 (1.005-1.025); Urobilinogen 0.2 mg/dL (Up to 0.2); pH 8.5 (5-8)
[2022-09-13 22:17] LABS: Bacteria Negative HPF (Negative); C & S Indicated? No; Casts Negative LPF (Negative); Crystals Many Calcium Oxalate HPF (Negative); Epithelial Cells Few HPF (Negative); Mucus Negative (Negative); Other Cells Negative (Negative); RBC 0-2 HPF (0-2); WBC 0-2 HPF (0-5)
== END 2022-09-13 21:45 | disposition home or self-care (01) ==
LOC: LBN 21:44
PROVIDERS: PCP Nurse Practitioner Family; Visit Provider Nurse Practitioner Family
DX: R10.31 Right lower quadrant pain (principal); R82.998 Other abnormal findings in urine
CPT/HCPCS: 81003; 81015

== ENCOUNTER 2022-11-05 14:24 | Outpatient (REF) | payer MEDICAID, SELFPAY | END 2022-11-05 14:25 | disposition home or self-care (01) | LOC: NCHCN 14:24 | PROVIDERS: PCP Nurse Practitioner Family; Visit Provider Nurse Practitioner Family | DX: N30.01 Acute cystitis with hematuria (principal) | CPT/HCPCS: 87086 ==

== ENCOUNTER 2022-12-12 20:55 | Outpatient (REF) | payer MEDICAID, SELFPAY ==
[2022-12-12 21:59] LABS: Hemoglobin A1C 5.2 % (<5.7)
== END 2022-12-12 20:56 | disposition home or self-care (01) ==
LOC: LBN 20:55
PROVIDERS: PCP Nurse Practitioner Family; Visit Provider Nurse Practitioner Gerontology
DX: E16.2 Hypoglycemia, unspecified (principal)
CPT/HCPCS: 83036

== ENCOUNTER → 2023-03-02 01:40 | Outpatient (CLI) | payer MEDICAID, SELFPAY ==
--- NOTE | 2023-03-02 11:15 | DI.US_ITS ---
Exam(s) US BREAST RT LIMITED MG MAMMO DIAGNOSTIC BI EXAM: MAMMO DIAGNOSTIC BI CLINICAL HISTORY: nipple inversion N64.59. COMPARISON: No exams were available for comparison TECHNIQUE: Craniocaudal and mediolateral oblique Full Field Digital Mammography views of both breast s with Computer Aided Diagnosis followed by Tomosynthesis and right breast ultrasound. FINDINGS: Mammography/Tomosynthesis: Masses/Architectural Distortion: None seen. Microcalcifications: No suspicious pleomorphic-type are seen. Skin Thickening/Nipple Retraction: None. Right breast US: Echotexture: Normal appearance of the glandular tissue. Shadowing: No suspicious foci. Cyst: None. Solid lesions: None seen. Ductal dilation: None. IMPRESSION: 1. No evidence of malignancy is noted. 2. Unless there is more urgent need, follow-up screening mammography is recommended, as per [place] guidelines. BI-RADS Category 1 - Negative Breast Density - Category B - Scattered areas of fibroglandular density A negative radiographic report should not delay biopsy if a dominant or clinically suspicious mass is present. Up to ten percent of cancers are not identified on mammography. A negative report may reinforce clinical impression. Adenosis and dense breasts may obscure an underlying neoplasm. False positive reports average 6 to 10%. Patient will receive a letter notifying them of these results.
== END ==
PROVIDERS: PCP Nurse Practitioner Family; Visit Provider Nurse Practitioner Family
DX: N64.59 Other signs and symptoms in breast (principal); Z12.31 Encounter for screening mammogram for malignant neoplasm of breast
CPT/HCPCS: 76642; 77062; 77066; G0279

== ENCOUNTER 2023-04-04 13:31 | Emergency (ER) | payer MEDICAID, SELFPAY ==
[2023-04-04 13:39] VITALS: BP 129/61; PULSE 82; RESP 16; TEMP 36.6; O2SAT 99
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
[2023-04-04] MEDS: Ondansetron 4 MG/2 ML VIAL IVP (14:42)
[2023-04-04] MEDS: Pantoprazole 40 MG VIAL 80 MG IVP (14:43)
[2023-04-04] MEDS: Normal Saline 1,000 ML 1000 ML IV (14:44)
[2023-04-04 14:55] LABS: Abs Immature Grans 0.02 10^3/uL (0.0-0.06); Absolute Basophil Count 0.05 10^3/uL (0.0-0.2); Absolute Eosinophil Count 0.22 10^3/uL (0.0-0.7); Absolute Lymphocyte Count 1.48 10^3/uL (1.2-3.4); Absolute Monocyte Count 0.54 10^3/uL (0.1-0.8); Basophils % 0.8; Eosinophils % 3.6; HCT 41.3 % (36.0-46.0); HGB 13.6 g/dL (11.2-15.7); Immature Grans % 0.3; Lymphocytes % 24.2; MCH 28.3 pg (27.0-33.0); MCHC 32.9 % (32.0-36.0); MCV 86 fL (80-95); MPV 12.3 fL (8.0-11.0); Monocytes % 8.8; Neutrophils % 62.3; Platelet Count 322 10^3/uL (130-400); RBC 4.81 10^6/uL (3.93-5.22); RDW 13.4 % (11.7-14.6); RDW-SD 41.8 fL; WBC 6.11 10^3/uL (4.4-10.8)
[2023-04-04] MEDS: FAMOTIDINE 20 MG in Normal Saline 100 ML 400 MG IVPB (15:01)
[2023-04-04 15:10] LABS: ALT 23 U/L (14-59); AST 19 U/L (15-37); Albumin 4.3 g/dL (3.4-5.0); Alkaline Phosphatase 74 U/L (46-116); Anion Gap 14.2 mmol/L (3-11); BUN 5 mg/dL (7-18); Bilirubin, Total 0.3 mg/dL (0.2-1.0); CO2 19.8 mmol/L (21.0-32.0); CREATININE 0.7 mg/dL (0.55-1.02); Calcium 9.1 mg/dL (8.5-10.1); Chloride 103 mmol/L (98-107); Estimated GFR 123.01 (mL/min/1.73m2); Glucose 72 mg/dL (74-106); Lipase 85 U/L (16-77); Magnesium 1.7 mg/dL (1.8-2.4); Potassium 3.4 mmol/L (3.5-5.1); Sodium 137 mmol/L (136-145); Total Protein 8.3 g/dL (6.4-8.2)
[2023-04-04 15:17] VITALS: BP 116/78; PULSE 76; RESP 16; TEMP 36.6; O2SAT 100
== END 2023-04-04 15:21 | disposition short-term general hospital (02) ==
PROVIDERS: Emergency Provider Emergency Medicine; PCP Nurse Practitioner Family
DX: R11.2 Nausea with vomiting, unspecified (principal); R19.4 Change in bowel habit; Z98.84 Bariatric surgery status
CPT/HCPCS: 80053; 83690; 96361; 96374; 96375; 99285; 83735; 85025; J2405

== ENCOUNTER 2023-07-09 18:18 | Emergency (ER) | payer MEDICAID, SELFPAY ==
[2023-07-09] VITALS (12 sets, daily range): BP systolic 100–140; BP diastolic 54–73; PULSE 60–84; RESP 11–27; TEMP 36.4; O2SAT 99
--- NOTE | 2023-07-09 18:15 | RT.EKG_ITS ---
APPROVED REPORT Exam: Resting ECG Reason for Exam: palps Patient Location: E HR:84 bpm ECG Measurements Heart Rate 84 AXIS DC 160 P 55 QRSd 96 QRS 0 QT 385 T 7 QTc 455 Conclusion Sinus rhythm...normal P axis, V-rate 60- 99 Indeterminate axis...QRS axis indeterminate Nonspecific T abnrm, anterolateral leads...T <-0.10mV, I aVL V2-V6
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
[2023-07-09 18:59] LABS: Abs Immature Grans 0.01 10^3/uL (0.0-0.06); Absolute Basophil Count 0.03 10^3/uL (0.0-0.2); Absolute Eosinophil Count 0.25 10^3/uL (0.0-0.7); Absolute Monocyte Count 0.65 10^3/uL (0.1-0.8); Basophils % 0.4; Eosinophils % 3.5; HGB 11.9 g/dL (11.2-15.7); Immature Grans % 0.1; Lymphocytes % 30.4; MCH 28.8 pg (27.0-33.0); MCHC 32.2 % (32.0-36.0); MCV 90 fL (80-95); MPV 12.9 fL (8.0-11.0); Neutrophils % 56.6; Platelet Count 271 10^3/uL (130-400); RBC 4.13 10^6/uL (3.93-5.22); RDW 13.2 % (11.7-14.6); RDW-SD 43.1 fL; WBC 7.24 10^3/uL (4.4-10.8)
[2023-07-09] MEDS: Normal Saline 1,000 ML 1000 ML IV (19:06)
[2023-07-09 19:24] LABS: ALT 16 U/L (14-59); AST 15 U/L (15-37); Albumin 3.7 g/dL (3.4-5.0); Alkaline Phosphatase 66 U/L (46-116); Anion Gap 10.9 mmol/L (3-11); BUN 13 mg/dL (7-18); Bilirubin, Total 0.3 mg/dL (0.2-1.0); CO2 25.1 mmol/L (21.0-32.0); CREATININE 0.8 mg/dL (0.55-1.02); Calcium 8.9 mg/dL (8.5-10.1); Chloride 105 mmol/L (98-107); Glucose 90 mg/dL (74-106); Magnesium 1.9 mg/dL (1.8-2.4); Potassium 3.3 mmol/L (3.5-5.1); Sodium 141 mmol/L (136-145); TSH (W/Ref FT4) 1.62 uIU/mL (0.36-3.74)
[2023-07-09] MEDS: Potassium Chloride 20 MEQ TABCR 40 MEQ PO (19:57)
[2023-07-09 20:06] LABS: Bilirubin Negative (Negative); Blood Large (Negative); Clarity Turbid (Clear); Glucose Negative (Negative); Ketones 80 mg/dL (Negative); Leukocyte Esterase Negative (Negative); Nitrite Negative (Negative)
[2023-07-09 20:15] LABS: C & S Indicated? Yes; RBC >50 HPF (0-2)
== END 2023-07-09 20:59 | disposition home or self-care (01) ==
PROVIDERS: Emergency Provider Nurse Practitioner Acute Care; PCP Nurse Practitioner Family
DX: R00.2 Palpitations (principal); R42 Dizziness and giddiness; E87.6 Hypokalemia; R94.31 Abnormal electrocardiogram [ECG] [EKG]; Z98.84 Bariatric surgery status
CPT/HCPCS: 80053; 93005; 96360; 99284; 81003; 81015; 83735; 84443; 85025; 87086; 93010

== ENCOUNTER 2023-12-06 11:42 | Outpatient (CLI) | payer MEDICAID, SELFPAY ==
[2023-12-06 11:44] LABS: Abs Immature Grans 0.01 10^3/uL (0.0-0.06); Absolute Basophil Count 0.03 10^3/uL (0.0-0.2); Absolute Eosinophil Count 0.16 10^3/uL (0.0-0.7); Absolute Lymphocyte Count 1.48 10^3/uL (1.2-3.4); Absolute Monocyte Count 0.47 10^3/uL (0.1-0.8); Basophils % 0.6 %; HCT 38.4 % (36.0-46.0); HGB 12.6 g/dL (11.2-15.7); Immature Grans % 0.2 %; Lymphocytes % 28.2 %; MCH 29.3 pg (27.0-33.0); MCHC 32.8 % (32.0-36.0); MCV 89 fL (80-95); MPV 12.6 fL (8.0-11.0); Platelet Count 266 10^3/uL (130-400); RDW 13.1 % (11.7-14.6); RDW-SD 43.1 fL; WBC 5.25 10^3/uL (4.4-10.8)
[2023-12-06 12:40] LABS: Ferritin 59 ng/mL (8-252); TSH (W/Ref FT4) 1.68 uIU/mL (0.36-3.74)
[2023-12-06 13:19] LABS: Iron 78 ug/dL (50-170); Total Iron Binding Capacity 294 ug/dL (250-450)
[2023-12-07 09:17] LABS: Transferrin 228 mg/dL (201-352)
== END 2023-12-06 11:43 | disposition home or self-care (01) ==
LOC: LBO 11:45
PROVIDERS: PCP Nurse Practitioner Family; Visit Provider Nurse Practitioner Family
DX: R68.89 Other general symptoms and signs (principal)
CPT/HCPCS: 36415; 82728; 83540; 83550; 84443; 84466; 85025

== ENCOUNTER 2023-12-13 15:30 | Emergency (ER) | payer MEDICAID, SELFPAY ==
[2023-12-13] VITALS (49 sets, daily range): BP systolic 84–111; BP diastolic 34–61; PULSE 70–109; RESP 10–28; TEMP 36.2–36.9; O2SAT 96–100
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
--- NOTE | 2023-12-13 16:12 | DI.CT_ITS ---
Exam(s) CT ABDOMEN PELVIS W EXAM: CT ABDOMEN PELVIS W CLINICAL HISTORY: nausea/vomiting, no BM x 2 days h/o yordy-en-y TECHNIQUE: Imaging Protocol: Axial computed tomography images with coronal and sagittal reformatted images were created and reviewed. CONTRAST MATERIAL: Intravenous: Omnipaque 350 Contrast volume:98 mL Oral: Yes COMPARISON: CT CT ABDOMEN PELVIS W from 11/05/[address] BRAIN CTA from 07/02/2020 FINDINGS: ABDOMEN: Lung Bases: Normal where visualized. Liver: Normal density. No measurable mass. Portal, Superior Mesenteric, and Splenic Veins: Unremarkable. Gallbladder and Biliary Tract: Status post cholecystectomy. No biliary ductal dilatation. Pancreas: Normal density, no abnormal calcifications or inflammatory process. Spleen: Normal. Adrenals: No masses seen. Kidneys: Normal size, contour and axis. No radiodense stones or obstructive uropathy. No masses seen. Abdominal Aorta: Abdominal portion non-dilated. Bowel: No obstruction or bowel wall thickening. Anastomoses are seen in the proximal stomach and mid small bowel. There is a redundant sigmoid colon. There is a moderate amount of stool in the colon. No evidence of an appendicitis. Peritoneal Cavity: No ascites, collection or mesenteric inflammatory response. No free air. Lymph Nodes: Within normal limits. Bones: Within normal limits for the patient's age. Soft Tissues: Unremarkable. PELVIS: Bladder: The urinary bladder is incompletely distended limiting evaluation. No gross abnormalities i dentified. Reproductive Organs: Unremarkable as visualized. Lymph Nodes: Within normal limits. Bones: Within normal limits for the patient's age. IMPRESSION: 1. No acute abdominal or pelvic process. 2. Moderate amount of stool in the colon which may represent constipation. RADIATION DOSE DELIVERED: 924.61mGy.cm Total DLP DATA REPOSITORY: All CT scans at this facility are submitted to the National Radiology Data Registry (NRDR) Dose Index Registry (DIR) with the [employer] (ACR). RADIATION OPTIMIZATION: All CT scans at this facility use at least one of these dose optimization te chniques: automated exposure control; mA and/or kV adjustment per patient size (includes targeted exa ms where dose is matched to clinical indication); or iterative reconstruction.
[2023-12-13 16:24] LABS: HCT 42.5 % (36.0-46.0); HGB 13.9 g/dL (11.2-15.7); MCH 29.1 pg (27.0-33.0); MCHC 32.7 % (32.0-36.0); MCV 89 fL (80-95); MPV 12.4 fL (8.0-11.0); Platelet Count 285 10^3/uL (130-400); RBC 4.77 10^6/uL (3.93-5.22); RDW 12.8 % (11.7-14.6); RDW-SD 41.9 fL; WBC 8.39 10^3/uL (4.4-10.8)
[2023-12-13] MEDS: ACETAMINOPHEN 1,000 MG/100 ML BTL 400 MG IVPB (16:24)
[2023-12-13] MEDS: Normal Saline 1,000 ML 1000 ML IV (16:24)
[2023-12-13] MEDS: diphenhydrAMINE 50 MG/ML VIAL 25 MG IVP (16:24)
[2023-12-13] MEDS: Metoclopramide 10 MG/2 ML VIAL IVP (16:24)
--- NOTE | 2023-12-13 16:34 | NUR.NOTE ---
Nursing Note:pt has hx of full salpingectomy, and reports there is no chance of , declined to provided urine for POC urine sample. provider notified.
[2023-12-13 16:42] LABS: ALT 19 U/L (14-59); AST 17 U/L (15-37); Alkaline Phosphatase 86 U/L (46-116); Anion Gap 12.5 mmol/L (3-11); BUN 10 mg/dL (7-18); CO2 23.5 mmol/L (21.0-32.0); CREATININE 0.8 mg/dL (0.55-1.02); Calcium 8.8 mg/dL (8.5-10.1); Chloride 104 mmol/L (98-107); Estimated GFR 104.15 (mL/min/1.73m2); Glucose 109 mg/dL (74-106); Lipase 26 U/L (16-77); Potassium 3.8 mmol/L (3.5-5.1); Sodium 140 mmol/L (136-145); Total Protein 7.5 g/dL (6.4-8.2)
[2023-12-13 17:15] LABS: COVID-19 PCR Negative (Negative); Influenza A PCR Negative (Negative); Influenza B PCR Negative (Negative); RSV PCR Negative (Negative)
[2023-12-13] MEDS: Barium Sulfate 2% W/V-Berry Smoothie 450 ML BTL PO ×2 (17:15→17:18)
[2023-12-13 17:16] LABS: Source Nasopharynx
[2023-12-13] MEDS: Dexamethasone 4 MG/ML VIAL IVP (18:46)
[2023-12-13] MEDS: Rizatriptan 10 MG TAB PO (19:02)
[2023-12-13] MEDS: Omnipaque 350 MG/ML 100 ML BTL IJ (19:11)
[2023-12-13] MEDS: Normal Saline - Diluent 50 ML VIAL IJ (19:12)
--- NOTE | 2023-12-13 20:03 | DI.VRAD_ITS ---
PROCEDURE INFORMATION: Exam: CT Abdomen And Pelvis With Contrast Exam date and time: 12/13/2023 7:01 PM Age: 28 years old Clinical indication: Nausea and vomiting; Additional info: Nausea/vomiting, no bm x 2 days h/o yordy-en-y TECHNIQUE: Imaging protocol: Computed tomography of the abdomen and pelvis with contrast. Contrast material: OMNI 350; Contrast volume: 100 ml; Contrast route: INTRAVENOUS (IV); Other contrast: Oral, omni 350 , 946; COMPARISON: CT ABDOMEN PELVIS W 11/05/2018 11:01 AM FINDINGS: Liver: No hepatic masses. Gallbladder and biliary ducts: Cholecystectomy. No significant biliary dilation or radiopaque stones in the biliary tree. Pancreas: No ductal dilation. No mass on noncontrast imaging. Spleen: No splenomegaly or suspicious lesions. Adrenal glands: No suspicious mass on noncontrast imaging. Kidneys and ureters: No hydronephrosis. No stones. Stomach and bowel: Postsurgical changes in stomach and jejunum, typical patulous appearance of jejunal-jejunal anastomosis. Normal CT appearance of the stomach. Normal CT appearance of the duodenum. Mild wall thickening of proximal jejunal loops, mild dilation of jejunum with progression of enteric contrast distally. Moderate colonic stool burden. No pathologic appearing wall thickening in the stomach on CT. Appendix: No evidence of appendicitis. Intraperitoneal space: Trace cul-de-sac free fluid appears within physiologic limits. No abscess or free air. Vasculature: No abdominal aortic aneurysm. Lymph nodes: No significantly enlarged lymph nodes on noncontrast imaging. Urinary bladder: No gross wall thickening on noncontrast imaging. Reproductive: Unremarkable as visualized. Bones/joints: No acute fracture. Soft tissues: No suspicious lesions. IMPRESSION: 1. Gastro jejunostomy appears satisfactory. 2. Mild jejunal enteritis and ileus without mechanical obstruction. Dictated and Authenticated by: Edith Rudd MD. Ordering:KENNY Gilliland MD
== END 2023-12-13 20:34 | disposition home or self-care (01) ==
PROVIDERS: Emergency Provider Nurse Practitioner Family; PCP Nurse Practitioner Family
DX: R11.2 Nausea with vomiting, unspecified (principal); R42 Dizziness and giddiness
CPT/HCPCS: 80053; 83690; 85027; 87637; 96361; 96365; 96375; 99285; 74177; 99283; J0131; J1100; J1200; J2765; J3490

== ENCOUNTER 2024-02-27 02:27 | Outpatient (CLI) | payer MEDICAID, SELFPAY ==
[2024-02-27 13:58] LABS: Hemoglobin A1C 5.2 % (<5.7)
[2024-02-27 14:08] LABS: Calculated LDL 68 mg/dL (<100); Cholesterol 122 mg/dL (<200); HDL Cholesterol 48 mg/dL (40-60); Triglyceride 31 mg/dL (<150)
== END 2024-02-27 02:28 | disposition home or self-care (01) ==
LOC: LBO 02:28
PROVIDERS: PCP Nurse Practitioner Family; Visit Provider Nurse Practitioner Family
DX: Z13.220 Encounter for screening for lipoid disorders (principal); Z13.1 Encounter for screening for diabetes mellitus
CPT/HCPCS: 36415; 80061; 83036

== ENCOUNTER 2024-04-05 18:46 | Emergency (ER) | payer MEDICAID, SELFPAY ==
[2024-04-05 18:52] VITALS: BP 124/77; PULSE 80; RESP 20; TEMP 36.5; O2SAT 99
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
[2024-04-05 19:07] VITALS: BP 124/77; PULSE 80; RESP 20; TEMP 36.5; O2SAT 99
[2024-04-05] MEDS: predniSONE 20 MG TAB 40 MG PO (19:08)
--- NOTE | 2024-04-09 07:53 | NUR.NOTE ---
Access chart to reconcile EKG orders with EKG's in [facility]. Order cancelled due to no EKG in [facility]. Nursing Note:
== END 2024-04-05 19:22 | disposition home or self-care (01) ==
LOC: ER 19:24
PROVIDERS: Emergency Provider Emergency Medicine; PCP Nurse Practitioner Family
DX: J06.9 Acute upper respiratory infection, unspecified; B97.89 Other viral agents as the cause of diseases classified elsewhere; J45.909 Unspecified asthma, uncomplicated
CPT/HCPCS: 99283; J7512

== ENCOUNTER 2024-04-28 12:50 | Emergency (ER) | payer MEDICAID, SELFPAY ==
[2024-04-28] VITALS (10 sets, daily range): BP systolic 104–127; BP diastolic 57–71; PULSE 58–77; RESP 18; TEMP 36.6; O2SAT 99–100
--- NOTE | 2024-04-28 13:15 | RT.EKG_ITS ---
APPROVED REPORT Exam: Resting ECG Reason for Exam: Syncope Patient Location: E HR:58 bpm ECG Measurements Heart Rate 58 AXIS MT 158 P 54 QRSd 83 QRS 63 QT 421 T 47 QTc 413 Conclusion Sinus bradycardia...rate< 60 Narrow complex sinus bradycardia rate of 58. Normal axis. Intervals within normal limits. No ST se gment abnormalities. T wave flattening in aVL. Appears similar to prior dated earlier this year.
[2024-04-28 13:24] LABS: Bilirubin Negative (Negative); Blood Negative (Negative); Clarity Clear (Clear); Glucose Negative (Negative); Ketones Negative (Negative); Leukocyte Esterase Negative (Negative); Nitrite Negative (Negative); Specific Gravity 1.015 (1.005-1.025); Urobilinogen 0.2 mg/dL (Up to 0.2)
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
--- NOTE | 2024-04-28 13:30 | DI.CT_ITS ---
Exam(s) CT HEAD WO EXAM: CT HEAD WO CLINICAL HISTORY: Seizure like activity. TECHNIQUE: Imaging Protocol: Axial computed tomography images with coronal and sagittal reformatted images were created and reviewed COMPARISON: CT CT BRAIN CTA from 07/02/2020 FINDINGS: Ventricles and Extra axial spaces: Normal in size and morphology for the patient's age. Hemorrhage: None. Cerebral parenchyma: Normal. Midline shift: None. Brainstem/Cerebellum: Normal. Calvarium: Normal. Visualized Paranasal sinuses/Mastoids: There is a small mucous retention cyst in the right maxillary sinus. Soft Tissues: Unremarkable. IMPRESSION: No acute intracranial process. RADIATION DOSE DELIVERED: 918.36mGy.cm Total DLP DATA REPOSITORY: All CT scans at this facility are submitted to the National Radiology Data Registry (NRDR) Dose Index Registry (DIR) with the [employer] [place] [employer] (A[employer]). RADIATION OPTIMIZATION: All CT scans at this facility use at least one of these dose optimization te chniques: automated exposure control; mA and/or kV adjustment per patient size (includes targeted exa ms where dose is matched to clinical indication); or iterative reconstruction.
[2024-04-28 13:34] LABS: *AMPHETAMINES SCREEN URINE Negative (Negative); *BARBITURATES SCREEN URINE Negative (Negative); *BENZODIAZEPINES SCREEN URINE Negative (Negative); Cannabinoids THC Negative (Negative); Cocaine Screen,Urine Negative (Negative); METHADONE URINE SCREEN Negative (Negative); OPIATES URINE SCREEN Negative (Negative)
[2024-04-28 13:35] LABS: Tricyclic Antidepressants Negative (Negative)
[2024-04-28 13:44] LABS: Abs Immature Grans 0.01 10^3/uL (0.0-0.06); Absolute Basophil Count 0.04 10^3/uL (0.0-0.2); Absolute Eosinophil Count 0.09 10^3/uL (0.0-0.7); Absolute Lymphocyte Count 1.77 10^3/uL (1.2-3.4); Absolute Monocyte Count 0.55 10^3/uL (0.1-0.8); Absolute Neutrophil Count 3.69 10^3/uL (1.2-6.7); Basophils % 0.7 %; Eosinophils % 1.5 %; HCT 39.6 % (36.0-46.0); HGB 13.1 g/dL (11.2-15.7); Immature Grans % 0.2 %; Lymphocytes % 28.8 %; MCH 29.6 pg (27.0-33.0); MCHC 33.1 % (32.0-36.0); MCV 90 fL (80-95); MPV 11.7 fL (8.0-11.0); Monocytes % 8.9 %; Neutrophils % 59.9 %; Platelet Count 265 10^3/uL (130-400); RBC 4.42 10^6/uL (3.93-5.22); RDW 12.6 % (11.7-14.6); RDW-SD 41.6 fL; WBC 6.15 10^3/uL (4.4-10.8)
[2024-04-28 13:58] LABS: HCG Qual (Serum) Negative
[2024-04-28 14:02] LABS: Salicylate < 2.8 mg/dL (<2.8)
[2024-04-28 14:04] LABS: Acetaminophen < 2 ug/mL (10-30)
[2024-04-28 14:05] LABS: ALT 26 U/L (14-59); AST 17 U/L (15-37); Albumin 4.2 g/dL (3.4-5.0); Alkaline Phosphatase 63 U/L (46-116); Anion Gap 8.3 mmol/L (3-11); Bilirubin, Total 0.43 mg/dL (0.2-1.0); CO2 26.7 mmol/L (21.0-32.0); CREATININE 0.9 mg/dL (0.55-1.02); Chloride 108 mmol/L (98-107); Estimated GFR 90.42 (mL/min/1.73m2); Glucose 93 mg/dL (74-106); Potassium 3.9 mmol/L (3.5-5.1); Sodium 143 mmol/L (136-145); TSH (W/Ref FT4) 1.35 uIU/mL (0.36-3.74); Total Protein 7.6 g/dL (6.4-8.2)
[2024-04-28 14:06] LABS: BUN < 1 mg/dL (7-18); ETHANOL BLOOD < 3.0 mg/dL (<10)
[2024-04-28] MEDS: diphenhydrAMINE 25 MG CAP PO (14:34)
[2024-04-28] MEDS: LORazepam 0.5 MG TAB PO (14:35)
[2024-04-28] MEDS: Acetaminophen 500 MG TAB 1000 MG PO (14:35)
== END 2024-04-28 15:32 | disposition home or self-care (01) ==
PROVIDERS: Emergency Provider Registered Nurse Emergency; PCP Nurse Practitioner Family
DX: R55 Syncope and collapse (principal); R56.9 Unspecified convulsions
CPT/HCPCS: 80053; 80307; 81025; 93005; 99284; 70450; 80320; 80329; 81003; 83735; 84443; 84703; 85025; 93010; 99283

== ENCOUNTER 2024-05-03 20:38 | Emergency (ER) | payer OTHER, MEDICAID, SELFPAY ==
[2024-05-03 20:43] VITALS: BP 116/78; PULSE 77; RESP 18; TEMP 36.3; O2SAT 100
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
[2024-05-03] MEDS: Acetaminophen 500 MG TAB 1000 MG PO (21:54)
[2024-05-03 22:13] VITALS: BP 115/70; PULSE 70; RESP 16; O2SAT 100
== END 2024-05-03 22:14 | disposition home or self-care (01) ==
PROVIDERS: Emergency Provider Emergency Medicine; PCP Nurse Practitioner Family
DX: R11.0 Nausea; G43.909 Migraine, unspecified, not intractable, without status migrainosus; Z79.899 Other long term (current) drug therapy; R56.9 Unspecified convulsions
CPT/HCPCS: 99284

== ENCOUNTER 2024-05-06 03:32 | Outpatient (CLI) | payer OTHER, MEDICAID, SELFPAY ==
--- NOTE | 2024-05-06 09:39 | PDOC.EEG ---
Neurology EEG EEG: [facility] Department of Neurology EEG REPORT Date of Recordin05/06/24 Interpreting Physician: Dr. Rebecca Regalado PCP/Referring Provider: Lan Franks NP Reason for study: Bird Lane is a 28 year old with recent events with LOC concerning for syncope vs seizure. Current Medications: Home Medications ?Medication ?Instructions ?Recorded ?Confirmed ?Type omeprazole 20 mg capsule,delayed 40 mg (2 x 20 mg) PO DAILY #180 10/02/23 05/03/24 Rx release caps ondansetron 4 mg disintegrating 4 mg PO TID PRN 12/13/23 05/03/24 History tablet sertraline 50 mg tablet 50 mg PO DAILY #90 tabs 02/22/24 05/03/24 Rx trazodone 50 mg tablet 50 mg PO QHS PRN sleep #90 tabs 02/22/24 05/03/24 Rx albuterol sulfate 90 mcg/actuation 2 puff inhalation Q6H PRN 04/03/24 05/03/24 Rx aerosol inhaler shortness of breath or wheezing #8.5 grams galcanezumab-gnlm 120 mg/mL 120 mg subcut QMONTH #3 mL 05/01/24 05/03/24 Rx subcutaneous pen injector (Emgality Pen) galcanezumab-gnlm 120 mg/mL 240 mg (2 mL) subcut ONCE #2 mL 05/01/24 05/03/24 Rx subcutaneous pen injector (Emgality Pen) prochlorperazine maleate 5 mg See Rx Instructions PO TID PRN 05/01/24 05/03/24 Rx tablet nausea and vomiting or headache #30 tabs rizatriptan 10 mg tablet See Rx Instructions PO .COMPLEX 05/01/24 05/03/24 Rx PRN migraine headache #27 tabs METHODS: A 21 channel digitized electroencephalogram was performed in the [facility] Clinical Neurophysiology Laboratory. The 10/20 international system of electrode placement was used and bipolar and referential electrode montages were recorded. In addition to EEG the patient was monitored for EKG and lateral/vertical eye movements. Activation procedures of photic stimulation and hyperventilation were performed if applicable. Video was used during activation procedures and during events where applicable. The duration of the recording was 30 minutes. DESCRIPTION OF EEG: The patient was noted to be awake, drowsy, and asleep during the recording. During maximal wakefulness a 9-Hz posterior background rhythm was present which was well-modulated, symmetrical, reactive to eye opening, and of moderate voltage. With eye opening the background activity changed to a low voltage mixture of alpha, beta, and occasional theta range frequencies. Faster frequencies were present in the bilateral anterior head regions. There was a normal anterior-posterior voltage gradient. During drowsiness, there was attenuation of the posterior dominant background rhythm and vertex waves. Stage II sleep was present with symmetrical sleep spindles, K-complexes, and vertex waves. Activating Procedures: Photic stimulation was performed which produced a symmetrical posterior driving response at various flash frequencies. Hyperventilation was performed with moderate effort and produced no physiological slowing of the background. EKG: EKG revealed normal sinus rhythm/sinus bradycardia. INTERPRETATION: This EEG is normal during the awake and sleep states as well as during photic stimulation and hyperventilation. PRIOR EEG: none CLINICAL CORRELATION: No focal regions of cerebral dysfunction or epileptiform activity was present. Epilepsy remains a clinical diagnosis and a normal EEG does not rule out epilepsy. Clinical correlation is advised. Rebecca Regalado MD Date of service: 05/06/24
== END 2024-05-06 03:33 | disposition home or self-care (01) ==
LOC: RT 03:32
PROVIDERS: PCP Nurse Practitioner Family; Visit Provider Psychiatry & Neurology Neurology
DX: R40.4 Transient alteration of awareness (principal); R56.9 Unspecified convulsions
CPT/HCPCS: 95819

== ENCOUNTER 2024-05-09 11:26 | Outpatient (CLI) | payer OTHER, MEDICAID, SELFPAY | END 2024-05-09 11:27 | disposition home or self-care (01) | PROVIDERS: PCP Nurse Practitioner Family; Visit Provider Psychiatry & Neurology Neurology | DX: R56.9 Unspecified convulsions (principal) | CPT/HCPCS: 93270 ==

== ENCOUNTER 2024-05-24 00:06 | Outpatient (CLI) | payer OTHER, MEDICAID, SELFPAY ==
--- NOTE | 2024-05-24 06:15 | DI.MRI_ITS ---
Exam(s) MR BRAIN WO EXAM: MR BRAIN WO CLINICAL HISTORY: ? seizure,OBSERVED SEIZURE ACTIVITY,R56.9 TECHNIQUE: Multiplanar multisequence MRI of the brain was performed. COMPARISON: CT CT HEAD WO from 04/28/2024 FINDINGS: VENTRICLES AND EXTRA AXIAL SPACES: Normal in size and morphology for the patient's age. MIDLINE SHIFT: None. CEREBRAL PARENCHYMA: No focus of restricted diffusion to suggest acute infarct. No space-occupying le eric identified. The temporal lobes appear symmetric and unremarkable. HEMORRHAGE: None. BRAINSTEM/CEREBELLUM: Normal. CALVARIUM: Normal. VISUALIZED PARANASAL SINUSES/MASTOIDS:There is a small mucous retention cyst in the right maxillary s inus. [place]: Normal flow void. PITUITARY GLAND: Unremarkable. OTHER FINDINGS: None. IMPRESSION: Unremarkable MRI of the brain. DATA REPOSITORY:
== END 2024-05-24 00:26 ==
LOC: DI 00:06
PROVIDERS: PCP Nurse Practitioner Family; Visit Provider Psychiatry & Neurology Neurology
DX: R56.9 Unspecified convulsions (principal)
CPT/HCPCS: 70551

== ENCOUNTER 2024-06-11 07:39 | Outpatient (CLI) | payer OTHER, MEDICAID, SELFPAY ==
--- NOTE | 2024-06-11 09:03 | W.CARDEVENT ---
Date of service: 06/11/24 Time of Service: 09:03 Cardiac Event Recorder Referring Provider:: Rebecca Regalado Indications:: Syncope Cardiac Event Note: This is a cardiac event monitor. Patient was monitored for 28 days and 15 hours. Rhythm throughout was sinus. Average heart rate overall was 68. Minimum was 44, maximum 108 There were no significant ventricular dysrhythmias. There was no atrial fibrillation, no high-grade AV block, no pauses greater than 3 seconds. Symptoms were reported which correlated only to sinus rhythm, with heart rates ranging from 66-92
== END 2024-06-11 07:40 | disposition home or self-care (01) ==
LOC: CARDOPNVT 07:39
PROVIDERS: PCP Nurse Practitioner Family; Referring Provider Psychiatry & Neurology Neurology; Visit Provider Internal Medicine Cardiovascular Disease
DX: R56.9 Unspecified convulsions (principal); R55 Syncope and collapse

== ENCOUNTER 2024-10-04 18:55 | Emergency (ER) | payer OTHER, MEDICAID, SELFPAY ==
[2024-10-04 19:11] VITALS: BP 119/70; PULSE 60; RESP 18; TEMP 36.4; O2SAT 98
--- NOTE | 2024-10-04 19:15 | DI.RAD_ITS ---
Exam(s) XR HAND RT COMPLETE EXAM: XR HAND RT COMPLETE CLINICAL HISTORY: shut hand in door. TECHNIQUE: 2D digital imaging was performed. COMPARISON: No exams were available for comparison FINDINGS: 3 views No evidence fracture or dislocation nor radiopaque foreign body. No gas in the soft tissues. Bone d ensity. No osseous lesions. No erosions. IMPRESSION: No acute osseous findings in the right hand. DATA REPOSITORY: RADIATION DOSE DELIVERED:
--- NOTE | 2024-10-04 19:54 | DI.VRAD_ITS ---
PROCEDURE INFORMATION: Exam: XR Right Hand Exam date and time: 10/04/2024 7:30 PM Age: 29 years old Clinical indication: Pain; Shut hand in door TECHNIQUE: Imaging protocol: Radiologic exam of the right hand. Views: 3 or more views. COMPARISON: CR XR WRIST RT COMPLETE 04/02/2022 9:21 PM FINDINGS: Bones/joints: No acute fracture or dislocation. The alignment is anatomic. Soft tissues: No evidence of large subcutaneous hematoma. IMPRESSION: No acute fracture or dislocation. Dictated and Authenticated by: Felicitas iVlla MD. Orderin Jj Figueroa MD
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
[2024-10-04 21:10] VITALS: BP 116/75; PULSE 62; RESP 16; O2SAT 100
== END 2024-10-04 21:11 | disposition home or self-care (01) ==
PROVIDERS: Emergency Provider Emergency Medicine; PCP Nurse Practitioner Family
DX: S67.196A Crushing injury of right little finger, initial encounter (principal); V58.3XXA Unspecified occupant of pick-up truck or van injured in noncollision transport accident in nontraffic accident, initial encounter
CPT/HCPCS: 99283; 73130

== ENCOUNTER 2024-11-25 06:32 | Emergency (ER) | payer OTHER, MEDICAID, SELFPAY ==
[2024-11-25 06:35] VITALS: BP 115/65; PULSE 82; RESP 18; O2SAT 96
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
[2024-11-25] MEDS: Ondansetron 4 MG/2 ML VIAL IVP (07:05)
[2024-11-25 07:08] LABS: Absolute Basophil Count 0.04 10^3/uL (0.0-0.2); Absolute Eosinophil Count 0.23 10^3/uL (0.0-0.7); Absolute Lymphocyte Count 1.72 10^3/uL (1.2-3.4); Absolute Monocyte Count 0.36 10^3/uL (0.1-0.8); Absolute Neutrophil Count 2.16 10^3/uL (1.2-6.7); Basophils % 0.9 %; Eosinophils % 5.1 %; HGB 12.1 g/dL (11.2-15.7); Lymphocytes % 38.1 %; MCH 29.4 pg (27.0-33.0); MCHC 32.7 % (32.0-36.0); MCV 90 fL (80-95); MPV 11.4 fL (8.0-11.0); Neutrophils % 47.9 %; Platelet Count 293 10^3/uL (130-400); RBC 4.11 10^6/uL (3.93-5.22); RDW 12.1 % (11.7-14.6); RDW-SD 39.8 fL; WBC 4.51 10^3/uL (4.4-10.8)
[2024-11-25 07:30] LABS: ALT 20 U/L (14-59); AST 17 U/L (15-37); Alkaline Phosphatase 66 U/L (46-116); Anion Gap 8.3 mmol/L (3-11); BUN 11 mg/dL (7-18); Bilirubin, Total 0.4 mg/dL (0.2-1.0); CO2 27.7 mmol/L (21.0-32.0); CREATININE 0.9 mg/dL (0.55-1.02); Calcium 8.7 mg/dL (8.5-10.1); Chloride 105 mmol/L (98-107); Estimated GFR 89.86 (mL/min/1.73m2); Glucose 99 mg/dL (74-106); Magnesium 1.9 mg/dL (1.8-2.4); Potassium 3.5 mmol/L (3.5-5.1); Sodium 141 mmol/L (136-145); Total Protein 7.1 g/dL (6.4-8.2)
[2024-11-25] MEDS: Acetaminophen 500 MG TAB 1000 MG PO (07:55)
[2024-11-25] MEDS: Rizatriptan 10 MG TAB PO (07:55)
[2024-11-25 08:09] LABS: Bilirubin Negative (Negative); Blood Trace-intact (Negative); Clarity Clear (Clear); Glucose Negative (Negative); Ketones Negative (Negative); Leukocyte Esterase Trace (Negative); Nitrite Negative (Negative); Urobilinogen 0.2 mg/dL (Up to 0.2)
[2024-11-25 08:21] LABS: Bacteria Few HPF (Negative); C & S Indicated? No; Casts Negative LPF (Negative); Crystals Negative HPF (Negative); Epithelial Cells Moderate HPF (Negative); Mucus Negative (Negative); RBC 0-2 HPF (0-2); WBC 0-2 HPF (0-5)
[2024-11-25 08:41] VITALS: BP 96/48; PULSE 53; RESP 16; O2SAT 96
[2024-11-28 11:51] LABS: Levetiracetam 89.4 mcg/mL
== END 2024-11-25 08:44 | disposition home or self-care (01) ==
PROVIDERS: Emergency Provider Emergency Medicine; PCP Nurse Practitioner Family
DX: G40.909 Epilepsy, unspecified, not intractable, without status epilepticus (principal); Z98.84 Bariatric surgery status
CPT/HCPCS: 36415; 80053; 96374; 99284; 80177; 81003; 81015; 83735; 85025; J2405

== ENCOUNTER 2024-12-12 01:13 | Outpatient (CLI) | payer OTHER, MEDICAID, SELFPAY ==
--- NOTE | 2024-12-16 16:22 | PDOC.EEG ---
Neurology EEG EEG: [facility] Department of Neurology LONG-TERM AMBULATORY EEG REPORT Date of Recordin12/12/24 at 15:27:07 to 12/13/24 at 13:21:06 Interpreting Physician: Dr. Rebecca Regalado PCP/Referring Provider: Kera Rivera NP Reason for study: Bird Lane is a 29 year-old with ongoing spells concerning for epileptic vs non-epileptic seizures. Current Medications: Home Medications ?Medication ?Instructions ?Recorded ?Confirmed ?Type omeprazole 20 mg capsule,delayed 40 mg (2 x 20 mg) PO DAILY #180 10/02/23 12/16/24 Rx release caps ondansetron 4 mg disintegrating 4 mg PO TID PRN 12/13/23 12/16/24 History tablet trazodone 50 mg tablet 50 mg PO QHS PRN sleep #90 tabs 02/22/24 12/16/24 Rx albuterol sulfate 90 mcg/actuation 2 puff inhalation Q6H PRN 04/03/24 12/16/24 Rx aerosol inhaler shortness of breath or wheezing #8.5 grams prochlorperazine maleate 5 mg See Rx Instructions PO TID PRN 05/01/24 12/16/24 Rx tablet nausea and vomiting or headache #30 tabs rizatriptan 10 mg tablet See Rx Instructions PO .COMPLEX 05/01/24 12/16/24 Rx PRN migraine headache #27 tabs clonazepam 0.5 mg tablet (Klonopin) 0.5 mg PO TID PRN anxiety, panic 11/28/24 12/16/24 Rx attacks #90 tabs sertraline 100 mg tablet 100 mg PO DAILY #90 tabs 11/28/24 12/16/24 Rx levetiracetam 1,000 mg tablet 1,000 mg PO Q12H #180 tabs 12/03/24 12/16/24 Rx erenumab-aooe 140 mg/mL 140 mg subcut QMONTH #1 mL 12/16/24 12/16/24 Rx subcutaneous auto-injector (Aimovig Autoinjector) zonisamide 100 mg capsule 300 mg (3 x 100 mg) PO DAILY #270 12/16/24 12/16/24 Rx caps METHODS: An 18-channel digitized electroencephalogram was recorded in the ambulatory setting with video. The 10/20 international system of electrode placement was used and bipolar and referential electrode montages were recorded. In addition to EEG the patient was monitored for EKG and by video. Activation procedures of photic stimulation and hyperventilation were performed if applicable. The duration of the recording was ~22 hours. DESCRIPTION OF EEG: Waking background activity: During maximal wakefulness a 9-10 Hz posterior background rhythm was present which was well-modulated, symmetrical, reactive to eye opening, and of moderate voltage. Faster frequencies were present in the bilateral anterior head regions. There was a normal anterior-posterior voltage gradient. Drowsy and sleeping background activity: During drowsiness, there was attenuation of the posterior dominant background rhythm and vertex waves. Normal stage II and III sleep was present with symmetrical sleep spindles, K-complexes, and vertex waves with slowing of the background rhythm to delta/theta frequencies. REM sleep manifested by rapid lateral eye movements and faster background rhythms was recorded. Arousal was unremarkable. Interictal abnormalities: none. Ictal findings: No event recorded. Activating Procedures: Photic stimulation was performed which produced a symmetrical posterior driving response at various flash frequencies. Hyperventilation was not performed. EKG: EKG revealed normal sinus rhythm. INTERPRETATION: This long-term EEG is normal during the awake and sleep states as well as during the activation procedures. PRIOR EEG: -EEG (05/06/24): normal awake, asleep and with PS/HV CLINICAL CORRELATION: No focal regions of cerebral dysfunction or epileptiform activity was present. No events captured. Epilepsy remains a clinical diagnosis and a normal EEG does not rule out epilepsy. Clinical correlation is advised. Rebecca Regalado MD Date of service: 12/12/24
== END 2024-12-12 01:14 | disposition home or self-care (01) ==
LOC: RT 01:14
PROVIDERS: PCP Nurse Practitioner Family; Visit Provider Psychiatry & Neurology Neurology
DX: R40.4 Transient alteration of awareness (principal)
CPT/HCPCS: 95714; 95720

== ENCOUNTER 2025-01-24 10:03 | Outpatient (CLI) | payer OTHER, MEDICAID, SELFPAY ==
[2025-01-24 10:35] LABS: Abs Immature Grans 0.01 10^3/uL (0.0-0.06); HCT 39.5 % (36.0-46.0); HGB 13.1 g/dL (11.2-15.7); Immature Grans % 0.2 %; MCH 29.9 pg (27.0-33.0); MCHC 33.2 % (32.0-36.0); MCV 90 fL (80-95); MPV 11.3 fL (8.0-11.0); Platelet Count 324 10^3/uL (130-400); RBC 4.38 10^6/uL (3.93-5.22); RDW 12.5 % (11.7-14.6); RDW-SD 41.3 fL; WBC 5.27 10^3/uL (4.4-10.8)
[2025-01-24 10:46] LABS: Hemoglobin A1C 4.9 % (<5.7)
[2025-01-24 11:27] LABS: ALT 38 U/L (14-59); AST 93 U/L (15-37); Albumin 4.2 g/dL (3.4-5.0); Alkaline Phosphatase 71 U/L (46-116); Anion Gap 7.1 mmol/L (3-11); BUN 11 mg/dL (7-18); Bilirubin, Total 0.3 mg/dL (0.2-1.0); CO2 25.9 mmol/L (21.0-32.0); Calcium 8.7 mg/dL (8.5-10.1); Chloride 108 mmol/L (98-107); Estimated GFR 89.86 (mL/min/1.73m2); Glucose 95 mg/dL (74-106); Potassium 4.0 mmol/L (3.5-5.1); Sodium 141 mmol/L (136-145); TSH (W/Ref FT4) 1.22 uIU/mL (0.36-3.74); Total Protein 7.4 g/dL (6.4-8.2)
[2025-01-25 09:45] LABS: HIV-1/2 Ag & Ab Screen Negative (Negative)
== END 2025-01-24 10:04 | disposition home or self-care (01) ==
LOC: LBO 10:07
PROVIDERS: PCP Nurse Practitioner Family; Visit Provider Nurse Practitioner Family
DX: R61 Generalized hyperhidrosis (principal); Z11.4 Encounter for screening for human immunodeficiency virus [HIV]
CPT/HCPCS: 36415; 80053; 87389; 83036; 84443; 85025

== ENCOUNTER 2025-02-26 13:55 | Outpatient (REF) | payer OTHER, MEDICAID, SELFPAY | END 2025-02-26 13:56 | disposition home or self-care (01) | LOC: LBN 13:55 | PROVIDERS: PCP Nurse Practitioner Family; Visit Provider Obstetrics & Gynecology | DX: Z12.4 Encounter for screening for malignant neoplasm of cervix (principal) | CPT/HCPCS: 88142; 87624 ==

== ENCOUNTER 2025-03-25 08:34 | Outpatient (CLI) | payer OTHER, MEDICAID, SELFPAY ==
[2025-03-25 10:04] LABS: ALT 19 U/L (14-59); AST 15 U/L (15-37); Albumin 4.0 g/dL (3.4-5.0); Alkaline Phosphatase 73 U/L (46-116); Bilirubin, Direct 0.1 mg/dL (0.0-0.2); Bilirubin, Total 0.2 mg/dL (0.2-1.0); Total Protein 6.6 g/dL (6.4-8.2)
[2025-03-27 14:41] LABS: TB Interpretation Negative (Negative); TB1 Ag minus Nil 0.01 IU/mL; TB2 Ag minus Nil 0.00 IU/mL
== END 2025-03-25 08:35 | disposition home or self-care (01) ==
LOC: LBO 08:35
PROVIDERS: PCP Nurse Practitioner Family; Visit Provider Nurse Practitioner Family
DX: R61 Generalized hyperhidrosis (principal); R74.01 Elevation of levels of liver transaminase levels
CPT/HCPCS: 36415; 80076; 86480

== ENCOUNTER 2025-04-03 05:31 | Outpatient (CLI) | payer OTHER, MEDICAID, SELFPAY ==
--- NOTE | 2025-04-03 07:45 | DI.DEXA_ITS ---
Exam(s) XR DEXA BONE DENSITY W/WO AMBER EXAM: XR DEXA BONE DENSITY W/WO AMBER CLINICAL HISTORY: Screening, post gastric bypass 2022,postmenopausal status,z78.0 TECHNIQUE: INXPO Horizon C densitometer analysis of left hip, lumbar spine and left forearm. Lateral survey image of the thoracic and lumbar spine. COMPARISON: CR LUMBAR SPINE AP, LAT from 02/05/2010 FINDINGS: Lateral view of the thoracic and lumbar spine shows no evidence of compression fractures. Bone mineral density measurements of the lumbar spine correspond to a total T- score of -0.1, in the normal range. Bone mineral density measurements of the left hip correspond to a total T-score of 0.6. The femoral neck T-score is 0.5, in the normal range. Theleft forearm bone mineral density measurements correspond to a T-score of the distal 3rd of 0.5, in the normal range. IMPRESSION: Normal bone mineral density.
== END 2025-04-03 05:51 ==
LOC: DI 05:31
PROVIDERS: PCP Nurse Practitioner Family; Visit Provider Nurse Practitioner Family
DX: Z78.0 Asymptomatic menopausal state (principal); E66.01 Morbid (severe) obesity due to excess calories; Z68.41 Body mass index [BMI] 40.0-44.9, adult; K21.9 Gastro-esophageal reflux disease without esophagitis
CPT/HCPCS: 77080

== ENCOUNTER 2025-05-01 09:58 | Outpatient (CLI) | payer OTHER, MEDICAID, SELFPAY ==
[2025-05-01 10:20] LABS: Abs Immature Grans 0.01 10^3/uL (0.0-0.06); HCT 37.5 % (36.0-46.0); HGB 12.3 g/dL (11.2-15.7); Immature Grans % 0.2 %; MCH 29.7 pg (27.0-33.0); MCHC 32.8 % (32.0-36.0); MCV 91 fL (80-95); MPV 10.9 fL (8.0-11.0); Platelet Count 284 10^3/uL (130-400); RBC 4.14 10^6/uL (3.93-5.22); RDW 12.2 % (11.7-14.6); RDW-SD 40.3 fL; WBC 4.38 10^3/uL (4.4-10.8)
[2025-05-01 11:00] LABS: ESR < 1 mm/hr (0-20)
[2025-05-01 11:06] LABS: Uric Acid 3.6 mg/dL (3.1-7.8)
[2025-05-01 11:08] LABS: Iron 206 ug/dL (50-170); Total Iron Binding Capacity 361 ug/dL (250-425); Transferrin Sat 57 % (15-50)
[2025-05-01 11:13] LABS: Vitamin B12 584 pg/mL (211-911); Vitamin D 25 Total 33 ng/mL (30-100)
[2025-05-01 11:14] LABS: Ferritin 11 ng/mL (7-271); Folate 20.5 ng/mL (>5.38)
[2025-05-01 11:28] LABS: C-Reactive Protein < 0.50 mg/dL (<=0.50)
[2025-05-02 09:49] LABS: Lyme Ab w Rflx to Lyme Confirm Negative (Negative)
[2025-05-04 16:56] LABS: B. miyamotoi PCR Negative (Negative); Babesia divergens/MO-1 Negative (Negative); Ehrlichia muris eauclairensis Negative (Negative)
== END 2025-05-01 09:59 | disposition home or self-care (01) ==
LOC: LBO 09:58
PROVIDERS: PCP Nurse Practitioner Family; Visit Provider Nurse Practitioner Family
DX: R68.89 Other general symptoms and signs (principal); R53.83 Other fatigue; M35.3 Polymyalgia rheumatica
CPT/HCPCS: 36415; 82306; 85652; 87798; 82607; 82728; 82746; 83540; 83550; 84550; 85025; 86038; 86140; 86431; 86618